=== PATIENT | female | born 1945 | race Caucasian/White ===

== ENCOUNTER 2019-05-31 11:37 | Emergency (ER) | payer BC, MEDICARE ==
[~2019-05-31] VITALS: Ht 167.6 cm; Wt 86.2 kg
--- OUTSIDE RECORDS SUMMARY | ~2019-05-31 | XMS | Encounter Summary ---
Demographics + + + | Address | [address] | | | [place] [address] | + + + | Home Phone | | + + + | Preferred Language | Unknown | + + + | Marital Status | | + + + | Jehovah'S Witness Affiliation | 1041 | + + + | Race | Unknown | + + + | Ethnic Group | Unknown | + + + Author + + + | Author | [facility] | | | and Mattana | + + + | Organization | [facility] | | | and [place] | + + + | Address | Unknown | + + + | Phone | Unavailable | + + + Support + + + + + | Name | Relationship | Address | Phone | + + + + + | Jon Anne | ECON | [address] | | | | | [place] | | | | | [address] | | + + + + + Care Team Providers + +------+ + | Care Cell Tower Climber Name | Role | Phone | + +------+ + | Jose Michael MD | PCP | | + +------+ + Reason for Visit + + + | Reason | Comments | + + + | Follow-up | | + + + Evaluate & Treat (Routine) + +--------+ + + + + | Status | Reason | Specialty | Diagnoses / | Referred By | Referred To | | | | | Procedures | Contact | Contact | + +--------+ + + + + | Authorized | | Radiation | Diagnoses | [facility] | Екатерина, | | | | Oncology | Malignant | Radiation | Roxana Ramos MD | | | | | neoplasm of | Oncology | [address] | | | | | upper-outer | Clinic [address] | | | | | quadrant of | [place] | [place], | | | | | left female | [place], | [place] [address] | | | | | breast (HCC) | [place] | Phone: | | | | | Procedures | [address] | [phone] | | | | | [place] OFFICE | Phone: | Fax: | | | | | OUTPATIENT | [phone] | [phone] | | | | | VISIT 25 | Fax: | | | | | | MINUTES | [phone] | | + +--------+ + + + + Encounter Details +--------+ + + + + | Date | Type | Department | Care Team | Description | +--------+ + + + + | 03/26/ | Hospital | [facility] | Екатерина Roxana | Encounter for | | 2019 | Encounter | [facility] | MD Richard [address] | screening mammogram | | | | ONCOLOGY CLINIC [address] | [place], [place] | for high-risk | | | | [place] | [address] | patient (Primary | | | | [place] [address] | | Dx); Malignant | | | | [phone] | | neoplasm of | | | | | | upper-outer quadrant | | | | | | of left breast in | | | | | | female, estrogen | | | | | | receptor positive | | | | | | (HCC) | +--------+ + + + + Social History + +-------+ +--------+------+ | Tobacco Use | Types | Packs/Day | Years | Date | | | | | Used | | + +-------+ +--------+------+ | Never Assessed | | | | | + +-------+ +--------+------+ + + + | Sex Assigned at | Date Recorded | | | | + + + | Not on file | | + + + + + + + | Job Start Date | Occupation | Industry | + + + + | Not on file | Not on file | Not on file | + + + + + + + + | Travel History | Travel Start | Travel End | + + + + + + | No recent travel history available. | + + documented as of this encounter Last Filed Vital Signs + + + + + | Vital Sign | Reading | Time Taken | Comments | + + + + + | Blood Pressure | 135/70 | 03/26/2019 10:40 AM | | | | | PDT | | + + + + + | Pulse | 81 | 03/26/2019 10:40 AM | | | | | PDT | | + + + + + | Temperature | 35.9 C (96.6 F) | 03/26/2019 10:40 AM | | | | | PDT | | + + + + + | Respiratory Rate | 16 | 03/26/2019 10:40 AM | | | | | PDT | | + + + + + | Oxygen Saturation | 96% | 03/26/2019 10:40 AM | | | | | PDT | | + + + + + | Inhaled Oxygen | - | - | | | Concentration | | | | + + + + + | Weight | 86.4 kg (190 lb 7.6 | 03/26/2019 10:40 AM | | | | oz) | PDT | | + + + + + | Height | - | - | | + + + + + | Body Mass Index | - | - | | + + + + + documented in this encounter Discharge Instructions Patient Instructions Tasha Prabhakar RN - 03/26/2019 11:09 AM PDTFollow-up with Dr. Trinity beasley in 1 year Labs: none Imaging: screening mammogram at [facility] next January Follow-up with Dr. Linder as directed. Alternation of follow-up between providers an ticipated. documented in this encounter Medications at Time of Discharge + + + +---------+ + + | Medication | Sig | Dispensed | Refills | Start | End Date | | | | | | Date | | + + + +---------+ + + | anastrozole | TAKE ONE TABLET BY | 30 | 2 | 06/01/20 | | | (ARIMIDEX) 1 mg | MOUTH EVERY DAY | tablet | | 18 | | | tabletIndications: | | | | | | | Malignant neoplasm | | | | | | | of upper-outer | | | | | | | quadrant of left | | | | | | | female breast, | | | | | | | unspecified estrogen | | | | | | | receptor status | | | | | | | (HCC) | | | | | | + + + +---------+ + + | B Complex-C (SUPER | Take by mouth. | | 0 | | | | B COMPLEX PO) | | | | | | + + + +---------+ + + | Calcium | Take by mouth. | | 0 | | | | Citrate-Vitamin D | | | | | | | (CALCIUM CITRATE + | | | | | | | PO) | | | | | | + + + +---------+ + + | Cholecalciferol | Take by mouth. | | 0 | | | | (VITAMIN D-3 PO) | | | | | | + + + +---------+ + + | Multiple | Take by mouth. | | 0 | | | | Vitamins-Minerals | | | | | | | (MULTIVITAMIN ADULT | | | | | | | PO) | | | | | | + + + +---------+ + + | venlafaxine | Take 75 mg by mouth | | 0 | | | | (EFFEXOR) 75 MG | Daily. | | | | | | tablet | | | | | | + + + +---------+ + + documented as of this encounter Progress Notes Roxana Willams MD - 03/26/2019 10:28 AM PDT Radiation Oncology Follow-up Chief Complaint/ICD10 ICD-10-CM ICD-9-CM 1. Encounter for screening mammogram for high-risk patient Z12.31 V76.11 2. Malignant neoplasm of upper-outer quadrant of left breast in female, estrogen receptor p ositive (HCC) C50.412 174.4 Z17.0 V86.0 History of Present Illness: Malignant neoplasm of upper-outer quadrant of left female breast (HCC) 01/20/2016 Initial Diagnosis Malignant neoplasm of upper-outer quadrant of left female breast (HCC) History of Present Illness: pathologic stage IA, pT1c pN0(sn) cM0. Invasive ductal carcinoma, grade 2, multifocal wit h tumor size is 2 cm and 1.0 cm. Tumor grade 2, non-extensive associated low-grade DCIS, n egative margins, no LVSI, 0/2 sentinel lymph nodes involved, ER 95%, GA 30%, Ki-67 65%, HE R-2/juliann nonamplified by FISH. 01/20/2016 Surgery lumpectomy and sentinel lymph node 03/17/2016 - 04/07/2016 Radiation Therapy Adjuvant radiation whole breast radiation with 4256 cGy in 16 fx, completed 04/07/16 04/07/2016 - Endocrine Therapy Anastrozole Fior Gonsalves completed radiation 3 years ago, she returns for routine follow-up. Screening mammogram at [facility] 01/23/2018, BIRADS-2 Dr. Linder follow up 10/2018 continues on anastrozole. Tolerating this well. She remains in good general health, no new issues or events. Excited about her new grand eric rodriguez and has been traveling to visit him. Continues to work as well. No breast concerns. D enies bothersome discomfort, pain, swelling or lumps. She has not experienced vision change s or headaches. No new focal areas of bone pain, ongoing generalized joint pain. Left neck a nd Shoulder discomfort related to overuse at work. Energy, appetite and weight are stable. General health: good, stable Ongoing treatment: anastrozole. Review of systems: Constitutional: Denies fatigue. Denies high fevers, shaking chills, anorexia, nausea, vomit ing, weight loss, or night sweats. Appetite without changes. Ear, Nose, Mouth, Throat: Denies odynophagia, dysphagia, or tinnitus. Cardiovascular: Denies shortness of breath, dyspnea on exertion, chest pain, palpitations o r orthopnea. Respiratory: Denies cough, hemoptysis, or sputum production. Gastrointestinal: Denies abdominal pain, constipation, diarrhea, melena, or bright red bloo d per rectum. Genitourinary: Denies hematuria or dysuria. Musculoskeletal: Reports general joint pain. Neurologic: Reports floaters in left eye, unchanged. Denies headache, visual changes, or n umbness/tingling of the extremities. Endocrine: Denies peripheral edema or heat/cold intolerance. Hematologic: Denies spontaneous bruising or bleeding. Integumentary: Denies rash, wounds or other skin concerns. Note: My chart: Pain assessment: Location:left shoulder and neck and arm, worse when using mouse Pain Level: PAIN PROG PAIN LEVEL: 2 Pain Quality: Constant Current pain regimen: advil as needed Current Outpatient Medications Medication Sig Dispense Refill anastrozole (ARIMIDEX) 1 mg tablet TAKE ONE TABLET BY MOUTH EVERY DAY 30 tablet 2 B Complex-C (SUPER B COMPLEX PO) Take by mouth. Calcium Citrate-Vitamin D (CALCIUM CITRATE + PO) Take by mouth. Cholecalciferol (VITAMIN D-3 PO) Take by mouth. Coenzyme Q10 (CO Q-10) 100 MG CAPS Co Q-10 ferrous sulfate (PX IRON) 27 MG TABS Take 27 mg by mouth Daily. Multiple Vitamins-Minerals (MULTIVITAMIN ADULT PO) Take by mouth. venlafaxine (EFFEXOR) 75 MG tablet Take 75 mg by mouth Daily. No current facility-administered medications for this visit. Allergies Allergen Reactions Codeine Nausea And Vomiting Sulfa Antibiotics Rash Intolerance No active intolerances/contraindications Vitals: 03/26/19 1040 BP: 135/70 Pulse: 81 Resp: 16 Temp: 35.9 C (96.6 F) Wt Readings from Last 3 Encounters: 03/26/19 86.4 kg (190 lb 7.6 oz) 02/08/18 88 kg (194 lb 0.1 oz) Physical Exam: General: Healthy appearing woman in no acute medical distress. KPS: 90 HEENT: Pupils equal, round and reactive to light. No conjunctival icterus or injection. EOM I. Oral, moist mucus membranes. Lymphatic: No cervical, supraclavicular or axillary lymphadenopathy. Cardiovascular: Regular rate and rhythm, no murmur. Pulmonary: Breath sounds heard throughout, no adventitial sounds or increased work of breat raisa at rest. Extremities: Upper and lower extremities warm and well perfused with no upper or lower extr emity edema. Neurologic: Alert, oriented and appropriated in conversation. CN II-IX grossly intact. Moves all 4 extremities normally with normal gait. Psychiatric: Appropriate. Breast: On upright exam breasts appear symmetric bilaterally with no contour abnormalitie s or malignant appearing skin changes. The left breast demonstrates a well-healed surgical incision. On supine exam palpation of the left breast demonstrates mild fibrosis at the sit e of prior lumpectomy. No discrete mass lesions are identified in either breast. There is no pain with palpation. No nipple changes. Labs: No recent results. Imaging: Review of relevant imaging reports: 01/23/19 screening mammogram at [facility]. Benign, BIRADS-2 Assessment: ICD-10-CM ICD-9-CM 1. Encounter for screening mammogram for high-risk patient Z12.31 V76.11 [facility] Tomosynthesis Screening Bilateral 2. Malignant neoplasm of upper-outer quadrant of left breast in female, estrogen receptor p ositive (HCC) C50.412 174.4 Z17.0 V86.0 Cintia continues to do very well, 3 years out from the completion of radiation. She does not express any lasting bothersome side-effects of radiation. Continues on anastrozole. Exam a nd recent mammogram are also benign, with no evidence of disease recurrence. Plan: Follow-up with Dr. Willams in 1 year Labs: none Imaging: screening mammogram at [facility] next January Follow-up with Dr. Linder as directed. Alternation of follow-up between providers an ticipated. Orders Placed This Encounter Procedures GEN Tomosynthesis Screening Bilateral Thank you for allowing me to participate in the care of Fior Gonsalves. If you should hook ve any questions regarding this evaluation, please do not hesitate to contact me. Roxana Willams M.D. Radiation Oncologist Department of Radiation Oncology [facility] Office: [phone] documented in this encounter Plan of Treatment +--------+ + + + + | Date | Type | Specialty | Care Team | Description | +--------+ + + + + | 04/11/ | Appointment | Radiation Oncology | Roxana Willams | | | 2019 | | | MD [address]etal [address] | | | | | | [place], [place] | | | | | | [address] | | | | | | | | +--------+ + + + + + +---------+--------+ + + | Name | Type | Priori | Associated Diagnoses | Order Schedule | | | | ty | | | + +---------+--------+ + + | GEN Tomosynthesis | Imaging | Routin | Encounter for | Expected: | | Screening Bilateral | | e | screening mammogram | 01/25/2020, Expires: | | | | | for high-risk | 05/26/2020 | | | | | patient | | + +---------+--------+ + + documented as of this encounter Procedures + +--------+ + + + | Procedure Name | Priori | Date/Time | Associated Diagnosis | Comments | | | ty | | | | + +--------+ + + + | IMAGING REPORT - | | 01/23/2019 | | Results for this | | EXTERNAL SCAN | | 12:00 AM | | procedure are in the | | | | PDT | | results section. | + +--------+ + + + documented in this encounter Results IMAGING REPORT - EXTERNAL SCAN (01/23/2019 12:00 AM PDT) + + + | Narrative | Performed At | + + + | Ordered by an | | | unspecified provider. | | + + + documented in this encounter Visit Diagnoses + + | Diagnosis | + + | Encounter for screening mammogram for high-risk patient - Primary | + + | Malignant neoplasm of upper-outer quadrant of left breast in female, estrogen receptor | | positive (HCC) | + + documented in this encounter"
--- OUTSIDE RECORDS SUMMARY | ~2019-05-31 | XMS | Encounter Summary ---
Demographics + + + | Address | [address] | | | [place] [address] | + + + | Home Phone | | + + + | Preferred Language | Unknown | + + + | Marital Status | | + + + | Scientology Affiliation | 1041 | + + + | Race | Unknown | + + + | Ethnic Group | Unknown | + + + Author + + + | Author | [facility] | | | and Mattana | + + + | Organization | [facility] | | | and [place] | + + + | Address | Unknown | + + + | Phone | Unavailable | + + + Support + + + + + | Name | Relationship | Address | Phone | + + + + + | Jon Anne | ECON | [address] | | | | | , [place] | | | | | [address] | | + + + + + Care Team Providers + +------+ + | Care Crown Buffer Name | Role | Phone | + +------+ + | Cordell Blake MD | PCP | | + +------+ + Encounter Details +--------+ + + + + | Date | Type | Department | Care Team | Description | +--------+ + + + + | 04/08/ | Documentati | [facility] | Carina Frias, | | | 2015 | on | [facility] | RN | | | | | ONCOLOGY CLINIC [address] | | | | | | [address] | | | | | | [place] [address] | | | | | | [phone] | | | +--------+ + + + + Social [...] documented as of this encounter Progress Notes Carina Frias RN - 04/08/2016 9:22 AM Nicole completed active treatment yesterda y, 04/07/16, for breast cancer and is eligible for a survivorship care plan per Commission o n Cancer guidelines. Fior did want a care plan however she declined an [facility]. Her care plan with accompanying resources have been mailed and she was notified I would be calling her to follow up and go over the contents of the care plan once she has it in front of her. In addition to the survivorship care plan, the following resources were mailed: information about local and national support groups, nutrition during and after canc er treatment including mediterranean/anti-inflammation diets, fact sheet on coping with the fear of recurrence, information about the rehab program at her local gym ([employer]) and a booklet titled After Treatment Ends: Tools for the Adult Cancer Survivor. As we did not meet in person, Fior did not fill out the NCCN distress thermometer, therefore n o further referrals to be recommended at this time by survivorship coordinator. Will call to follow up in one month's time, my contact information was provided with the care plan oriana pittman Fior want to call me sooner. Electronically signed by Carina Frias RN at 016 9:32 AM PDTdocumented in this encounter Plan of Treatment +--------+ + + + + | Date | Type | Specialty | Care Team | Description | +--------+ + + + + | 04/11/ | Appointment | Radiation Oncology | Roxana Willams | | | 2019 | | | MD Hetal Ramos | | | | | | [place], [place] | | | | | | [address] | | | | | | | | +--------+ + + + + documented as of this encounter Visit Diagnoses Not on filedocumented in this encounter"
--- OUTSIDE RECORDS SUMMARY | ~2019-05-31 | XMS | Encounter Summary ---
Demographics + + + | Address | [address] | | | [place] [address] | + + + | Home Phone | | + + + | Preferred Language | Unknown | + + + | Marital Status | | + + + | Taoist Affiliation | 1041 | + + + | Race | Unknown | + + + | Ethnic Group | Unknown | + + + Author + + + | Author | [facility] | | | and [place]ana | + + + | Organization | [facility] | | | and [place] | + + + | Address | Unknown | + + + | Phone | Unavailable | + + + Support + + + + + | Name | Relationship | Address | Phone | + + + + + | Jon Anne | ECON | [address] | | | | | [place], [place] | | | | | [address] | | + + + + + Care Team Providers + +------+ + | Care Salesforce Administrator Name | Role | Phone | + +------+ + | Cordell Blake MD | PCP | | + +------+ + Reason for Referral Diagnostic/Screening (Routine) +--------+--------+ + + + + | Status | Reason | Specialty | Diagnoses / | Referred By | Referred To | | | | | Procedures | Contact | Contact | +--------+--------+ + + + + | Closed | | Radiology | Diagnoses | Екатерина | [address] | | | | | Breast | Roxana M, | [place] | | | | | cancer of | [address] | [place], | | | | | upper-outer | [address] | [place] [address] | | | | | quadrant of | [place], | Phone: | | | | | left female | [place] [id number] | [phone] | | | | | breast (HCC) | Phone: | Fax: | | | | | Procedures | [phone] | [phone] | | | | | CT | Fax: | | | | | | Treatment | [phone] | | | | | | Plan Complex | | | +--------+--------+ + + + + Encounter Details +--------+ + + + + | Date | Type | Department | Care Team | Description | +--------+ + + + + | 03/08/ | Orders Only | [facility] | Roxana Willams | Breast cancer of | | 2016 | | [facility] | MD Richard [address] | upper-outer quadrant | | | | ONCOLOGY CLINIC [address] | [place], [place] | of left female | | | | [place] | [address] | breast (HCC) | | | | [place] [address] | | (Primary Dx) | | | | [phone] | | | +--------+ + + + [...] + + documented as of this encounter Plan of Treatment +--------+ + + + + | Date | Type | Specialty | Care Team | Description | +--------+ + + + + | 04/11/ | Appointment | Radiation Oncology | Roxana Willams | | | 2019 | | | MD [address] | | | | | | [place], [place] | | | | | | [address] | | | | | | | | +--------+ + + + + documented as of this encounter Results CT Treatment Plan Complex (03/10/2016 10:38 AM PDT) + + | Specimen | + + | | + + + + + | Narrative | Performed At | + + + | No Radiologist interpretation, please see Chart Review. | [facility] | + + + + +---------+ + + | Performing | Address | City/State/Zipcode | Phone Number | | Organization | | | | + +---------+ + + | [facility] | | | | + +---------+ + + documented in this encounter Visit Diagnoses + + | Diagnosis | + + | Breast cancer of upper-outer quadrant of left female breast (HCC) - Primary | + + documented in this encounter"
--- OUTSIDE RECORDS SUMMARY | ~2019-05-31 | XMS | Encounter Summary ---
Demographics + + + | Address | [address] | | | [place] [address] | + + + | Home Phone | | + + + | Preferred Language | Unknown | + + + | Marital Status | | + + + | Sikh Affiliation | 1041 | + + + | Race | Unknown | + + + | Ethnic Group | Unknown | + + + Author + + + | Author | [facility] | | | and [place] | + + + | Organization | [facility] | | | and [place] | + + + | Address | Unknown | + + + | Phone | Unavailable | + + + Support + + + + + | Name | Relationship | Address | Phone | + + + + + | Jon Anne | ECON | [address] | | | | | [place] | | | | | [address] | | + + + + + Care Team Providers + +------+ + | Care Drawing Press Operator Name | Role | Phone | + +------+ + | Cordell Blake MD | PCP | | + +------+ + Encounter Details +--------+ + + + + | Date | Type | Department | Care Team | Description | +--------+ + + + + | 03/18/ | Hospital | [facility] | Roxana Willams | | | 2016 | Encounter | MED CTR RADIATION | M, MD [address] | | | | | ONCOLOGY [address] [place], [place] | | | | | [place], | [address] | | | | | [place] [address] | | | | | | [phone] | | | +--------+ + + + [...] + + documented as of this encounter Medications at Time of Discharge + + + +---------+--------+ + | Medication | Sig | Dispensed | Refills | Start | End Date | | | | | | Date | | + + + +---------+--------+ + | B Complex-C (SUPER | Take by mouth. | | 0 | | | | B COMPLEX PO) | | | | | | + + + +---------+--------+ + | Calcium | Take by mouth. | | 0 | | | | Citrate-Vitamin D | | | | | | | (CALCIUM CITRATE + | | | | | | | PO) | | | | | | + + + +---------+--------+ + | Cholecalciferol | Take by mouth. | | 0 | | | | (VITAMIN D-3 PO) | | | | | | + + + +---------+--------+ + | Multiple | Take by mouth. | | 0 | | | | Vitamins-Minerals | | | | | | | (MULTIVITAMIN ADULT | | | | | | | PO) | | | | | | + + + +---------+--------+ + | venlafaxine | Take 75 mg by mouth | | 0 | | | | (EFFEXOR) 75 MG | Daily. | | | | | | tablet | | | | | | + + + +---------+--------+ + | Coenzyme Q10 | Take by mouth. | | 0 | | | | (COQ10 PO) | | | | | 8 | + + + +---------+--------+ + | ferrous sulfate | Take 27 mg by mouth | | 0 | | | | (PX IRON) 27 MG TABS | Daily. | | | | 9 | + + + +---------+--------+ + documented as of this encounter Progress Notes Roxana James MD - 03/18/2016 11:59 PM [facility] On Treatment Note Name: Fior Gonsalves ID: [id number] Date of Service:04/01/2016 ICD-9 and Description: C50.412 - Malignant neoplasm of upper-outer quadrant of left female breast, Diagnosed 03/02 16 (Active) , Radiation Technical Factors: --Planned Dose: Thorax (Plan ID - Lt Breast) - Rx Dose 4,256cGy (Status - Completed) - --Current Dose: Course: Thorax Treatment Site: Lt Breast Energy: 10X Dose/Fx (cGy): 266 #Fx: Dose Correction (cGy): 0 Total Dose (cGy): 3,192 Start Date: 03/17/2016 End Date: 04/01/2016 Imaging Review: Images were reviewed this week and results of the review have been recorded in ARIA. Cor rections were applied as necessary. Clinical Data Vital Signs: Performed on 04/01/2016 2:59 PM Weight - 87.7 kg - , Temperature - 35.9 C (LOW) - , Pulse - 80 / min - , Respiration - 16 / min - , Systolic - 122 mm(hg) - , Diastolic - 75 mm(hg) - , O2 Sat - 95 % (LOW) - , Pain - 0 - and BP - 122/ 75 - ;. Performance Scale: 70% - Unable to do active work, but able to care for self. (Karnofsky) Pain Assessment: Are you having pain? - No Toxicities: The following toxicities were assessed as a 1: Cough - - Mild, relieved by non-prescription medication Fatigue (lethar/malai/astheni) - - Increased fatigue over baseline, but not altering jonas l activities Pigmentation changes - - Localized pigmentation changes Dry Skin - - Normal RT - Pain due to RT - - None Radiation Dermatitis - - None Rash/ desquamation - - None Physician Assessment: 00:00:00 - On Treatment Progress Note - Roxana James M.D - Interval history: - Stable Moderate fatigue - Resolving nasal congestion and minimally productive cough, no fevers. - Mild erythema on breast, no pain, new pruritus. Objective: Alert and oriented, NAD. Skin mild erythema. Assessment and Plan: Continue treatment as planned. Tolerating well. Conservative skin care with emollient lotion. 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 Cor rections were applied as necessary. Clinical Data Vital Signs: Performed on 03/25/2016 3:04 PM Weight - 89.9 kg - , Temperature - 36.1 C (LOW) - , Pulse - 89 / min - , Respiration - 16 / min - , Systolic - 120 mm(hg) - , Diastolic - 64 mm(hg) (LOW) - , O2 Sat - 95 % (LOW) - , Pain - 0 - and BP - 120/ 64 - ;. Performance Scale: 70% - Unable to do active work, but able to care for self. (Karnofsky) Pain Assessment: Are you having pain? - Yes Toxicities: The following toxicities were assessed as a 1: Cough - - Mild, relieved by non-prescription medication Fatigue (lethar/malai/astheni) - - Increased fatigue over baseline, but not altering jonas l activities Dry Skin - - Normal Pigmentation changes - - None RT - Pain due to RT - - None Radiation Dermatitis - - None Rash/ desquamation - - None Physician Assessment: 15:38:00 - On Treatment Progress Note - Seng Wilson Interval history: - Moderate fatigue - Continued nasal congestion and minimally productive cough, no fevers. - Mild erythema on breast, no pain. Objective: Alert and oriented, NAD. Skin Faint erythema. Assessment and Plan: Continue treatment as planned. Tolerating well. Conservative skin care with emollient lotion. 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 Cor rections were applied as necessary. Clinical Data Vital Signs: Performed on 03/18/2016 2:53 PM Weight - 88.7 kg - , Temperature - 35.9 C (LOW) - , Pulse - 75 / min - , Respiration - 16 / min - , Systolic - 132 mm(hg) - , Diastolic - 70 mm(hg) - , O2 Sat - 94 % (LOW) - , Pain - 0 - and BP - 132/ 70 - ;. Performance Scale: 80% - Normal activity, but requires effort. (Karnofsky) Pain Assessment: Are you having pain? - No Toxicities: Cough - - Absent Dry Skin - - Normal Fatigue (lethar/malai/astheni) - - None Pigmentation changes - - None RT - Pain due to RT - - None Radiation Dermatitis - - None Rash/ desquamation - - None Physician Assessment: 17:01:00 - On Treatment Progress Note - Roxana James M.D - Interval history: Fior started radiation treatment this week. She has been tolerating treatment very we ll. No apparent side effects. We discussed skin care and potential side effects throughou t treatment. Objective: Alert and oriented, NAD. Skin no erythema. Assessment and Plan: Continue treatment as planned. Tolerating well. Conservative skin care with emollient lotion. Approved by: Roxana James M.D 03/18/2016 5:11:28 PM Page 1 of 2 CSN: [id number] signed by Roxana James MD at 03/18/2016 5:11 PM PDTd ocumented in this encounter Plan of Treatment +--------+ + + + + | Date | Type | Specialty | Care Team | Description | +--------+ + + + + | 04/11/ | Appointment | Radiation Oncology | Roxana Willams | | | 2019 | | | MD [address] | | | | | | [facility] [place] | | | | | | [address] | | | | | | | | +--------+ + + + + documented as of this encounter Visit Diagnoses Not on filedocumented in this encounter"
--- OUTSIDE RECORDS SUMMARY | ~2019-05-31 | XMS | Encounter Summary ---
Demographics + + + | Address | [address] | | | [place] [address] | + + + | Home Phone | | + + + | Preferred Language | Unknown | + + + | Marital Status | | + + + | Faith Affiliation | 1041 | + + + | Race | Unknown | + + + | Ethnic Group | Unknown | + + + Author + + + | Author | [facility] | | | and [place] | + + + | Organization | [facility] | | | and [place] | + + + | Address | Unknown | + + + | Phone | Unavailable | + + + Support + + + + + | Name | Relationship | Address | Phone | + + + + + | Jon Anne | ECON | [address] | | | | | [place] | | | | | [address] | | + + + + + Care Team Providers + +------+ + | Care Oyster Sorter Name | Role | Phone | + +------+ + | Cordell Blake MD | PCP | | + +------+ + Reason for Visit +--------+ + | Reason | Comments | +--------+ + | Other | Survivorship | +--------+ + Encounter Details +--------+ + + + + | Date | Type | Department | Care Team | Description | +--------+ + + + + | 05/10/ | Telephone | [facility] | Carina Frias, | Other (Survivorship) | | 2015 | | MED CTR MEDICAL | RN | | | | | ONCOLOGY CLINIC [address] | | | | | | [address] | | | | | | [place] [address] | | | | | | [phone] | | | +--------+ + + + [...] | | | MD [address] | | | | | | [place] | | | | | | [address] | | | | | | | | +--------+ + + + + documented as of this encounter Visit Diagnoses Not on filedocumented in this encounter"
--- OUTSIDE RECORDS SUMMARY | ~2019-05-31 | XMS | Encounter Summary ---
Demographics + + + | Address | [address] | | | [place] [address] | + + + | Home Phone | | + + + | Preferred Language | Unknown | + + + | Marital Status | | + + + | Caodaism Affiliation | 1041 | + + + | Race | Unknown | + + + | Ethnic Group | Unknown | + + + Author + + + | Author | [facility] | | | and [place] | + + + | Organization | [facility] | | | and [place] [...] , [place] | | | | | [address] | | + + + + + Care Team Providers + +------+ + | Care Double End Tenoner Setter Name | Role | Phone | + +------+ + | Cordell Blake MD | PCP | | + +------+ + Encounter Details +--------+ + + + + | Date | Type | Department | Care Team | Description | +--------+ + + + + | 07/20/ | Hospital | [facility] | Roxana Willams | Breast cancer | | 2017 | Encounter | MED CTR RADIATION | MD Richard [address] | screening, high risk | | | | ONCOLOGY [address] | [facility] [place] | patient (Primary | | | | [place], | [id number] | Dx); Malignant | | | | [place] [id number] | | neoplasm of | | | | [phone] | | upper-outer quadrant | | | | | | of left female | | | | | | breast (HCC) | +--------+ + + + + [...] | + + + +---------+--------+ + | anastrozole | Take 1 mg by mouth | | 0 | | | | (ARIMIDEX) 1 mg | Daily. | | | | 7 | | tablet | | | | [...] encounter Progress Notes Roxana James MD - 07/20/2016 10:44 AM [facility] Radiation Oncology Follow-up Note PATIENT: Fior Gonsalves MR#: [id number] :1945 DOS:07/20/2016 ICD/Diagnosis: C50.412 - Malignant neoplasm of upper-outer quadrant of left female breast, Diagnosed 03/02 16 (Active) Chief Complaint/History of Present Illness: Fior Gonsalves is a 71 year-old woman with left breast cancer, pathologic stage IA, pT 1c pN0(sn) cM0. Invasive ductal carcinoma, grade 2, multifocal with tumor size is 2 cm and 1.0 cm. Tumor grade 2, non-extensive associated low-grade DCIS, negative margins, no LVSI, 0/2 sentinel lymph nodes involved, ER 95%, CT 30%, Ki-67 65%, HER-2/juliann nonamplified by [facility]. She has undergone lumpectomy and sentinel lymph node procedure and completed adjuvant r adiation whole breast radiation with 4256 cGy in 16 fx, completed 04/07/16. Breast symptoms have resolved nicely with only minimal axillary tenderness at the scar tis abraham. She does not demonstrate any axillary tightness, no breast or arm swelling. Cintia has been ill over the last few months with multiple unrelated issues. She describes multiple m onths of loose stools after completing radiation this has resolved by fiber supplement and eating yogurt. She also reports to upper respiratory tract infections, she is currently de aling with one. Nasal congestion, cough, fatigue. She has not had any breast cancer relat ed concerns at this time. She is taking adjuvant anastrozole under the care of Dr. Amol toussaint and tolerating this medication well. Review of Systems: ROS ConstitutionalAbnormal - Complains of night sweats. Denies lack of appetite, fatigue, fever, rigors / chills and change in weight.ROS EyesNormal - Denies blurred vision, double vision and visual difficulties.ROS ENMT Abnormal - Complains of sinusitis with allergic rhi nitis. Denies dysphagia and esophagitis.ROS NeckNormal - Denies neck masses, muscle weaknes s, neck pain, decreased range of motion and swelling of the neck.ROS IntegumentaryNormal - Denies blistering, bruising, dry skin, pruritus and rash.ROS BreastsAbnormal - Complains o f pain Tenderness under left arm at times.ROS Cardiovascular Normal - Denies arrhythmias, chest pain, dyspnea, edema and palpitations.ROS RespiratoryAbnormal - Complains of cough. D enies dyspnea, hemoptysis and wheezing.ROS GastrointestinalAbnormal - Complains of heartbur n / dyspepsia. Denies abdominal pain, constipation, diarrhea, nausea and vomiting.ROS Luba tourinary (F)Normal - Denies dysuria, frequency, nocturia, urgency and urine color change. Stress incontinenceROS MusculoskeletalAbnormal - Complains of arthritis. Denies joint pain, muscle weakness and decreased range of motion.ROS NeurologicAbnormal - Complains of dizzin ess. Denies headaches, motor weakness and sensory problems.ROS PsychiatricNormal - Denies m ood swings, depression and euphoria.ROS EndocrineNormal - Denies diabetes, hot flashes and thyroid disease.ROS Hematologic/LymphaticNormal - Denies easy bruising and tender or enlar ged lymph nodes. Medications: ANASTROZOLE 1 mg TABLET ORAL q.d. B Complex-C (SUPER B COMPLEX) TABLET q.d. CALCIUM ACETATE CAPSULE ORAL CO Q-10 CAPSULE D3 (2000 mg) TABLET ferrous sulfate (PX IRON) 27 MG iron TABLET venlafaxine er (75 mg) CAPSULE Allergies: codeine sulfa Vital Signs: Performed on 07/20/2016, 09:26Weight 85.1 kg Temperature 36.0 C (LOW) Pulse 88 / min Respiration 16 / min BP130/76 mm(hg) O2 Sat 93 % (LOW) Pain 0 Physical Exam: General: Healthy appearing woman in no acute medical distress. KPS: 90 HEENT: Pupils equal , round and reactive to light. No conjunctival icterus or injection. EOMI. Oral, moist mucu s membranes. Lymphatic: No cervical, supraclavicular or axillary lymphadenopathy. Cardiovascular: Regul ar rate and rhythm, no murmur. Pulmonary: Breath sounds heard throughout, no adventitial sounds or increased work of bobbi thing at rest. Extremities: Upper and lower extremities warm and well perfused with no upper or lower ext remity edema. Neurologic: Alert, oriented and appropriated in conversation. CN II-IX grossly intact. Moves all 4 extremities normally with normal gait. Psychiatric: Appropriate. Breast: On upright exam breasts appear symmetric bilaterally with no contour abnormaliti es or malignant appearing skin changes. The left breast demonstrates a well-healed surgica l incisions, periareolar and anterior axilla. On supine exam palpation of the left breast d emonstrates mild fibrosis at the site of prior lumpectomy and sentinel lymph node procedure . No discrete mass lesions are identified in either breast. There is no pain with palpati on. No nipple changes. Questionnaires: Are you having pain?No Imaging, pathology and pertinent labs reviewed personally and described above in history o f present illness. Impression/Plan: 71 year-old woman with left breast cancer, pathologic stage IA, pT1c pN0(sn) cM0. Invasive ductal carcinoma, grade 2, multifocal with tumor size is 2 cm and 1.0 cm. Tumor grade 2, n on-extensive associated low-grade DCIS, negative margins, no LVSI, 0/2 sentinel lymph nodes involved, ER 95%, CT 30%, Ki-67 65%, HER-2/juliann nonamplified by FISH. She has undergone lum pectomy and sentinel lymph node procedure and completed adjuvant radiation whole breast ra diation with 4256 cGy in 16 fx, completed 04/07/16. Adjuvant endocrine therapy with anast rozole. Pat has recovered well from radiation treatment. She has minimal sequelae of treatment wi th mild scar fibrosis and tenderness. She is encouraged to perform massage to these areas and continue range of motion exercises. I ordered a six-month follow-up mammogram of the le , due now at [facility]. Follow-up with Dr. Linder as directed in the next few tue. Her annual bilateral screening mammogram will be due in January. She should return f or clinical exam at that time. Thank you for allowing me to participate in the care of Fior Gonsalves. If you should have any questions regarding this evaluation, please do not hesitate to contact me. Roxana Herrera M.D. Radiation Oncologist Department of Radiation Oncology [facility] Electronically signed by Roxana James M.D CC: Cordell Blake M.D. Ap Pascual M.D. Fior Lara M.D. Kirk Linder M.D. This note was transcribed using [employer] speech recognition software. As a result, there ma y be unintended for medical and/or spelling errors. Every attempt is made to correct dicta tion. If there are any questions or errors please contact our office. CSN: [id number] signed by Roxana James MD at 07/20/2016 10:46 AM PSTd ocumented in this encounter Plan of Treatment +--------+ + + + + | Date | Type | Specialty | Care Team | Description | +--------+ + + + + | 04/11/ | Appointment | Radiation Oncology | Roxana Willams | | | 2019 | | | MD [address] | | | | | | [place], [place] | | | | | | [address] | | | | | | | | +--------+ + + + + + +---------+--------+ + + | Name | Type | Priori | Associated Diagnoses | Order Schedule | | | | ty | | | + +---------+--------+ + + | GEN Digital | Imaging | Routin | Malignant neoplasm | Expected: | | Diagnostic Left | | e | of upper-outer | 07/20/2016, Expires: | | | | | quadrant of left | 09/17/2017 | | | | | female breast (HCC) | | + +---------+--------+ + + | GEN Digital | Imaging | Routin | Breast cancer | Expected: | | Screening Bilateral | | e | screening, high risk | 01/12/2017, Expires: | | | | | patient | 09/19/2017 | + +---------+--------+ + + documented as of this encounter Procedures + +--------+ + + + | Procedure Name | Priori | Date/Time | Associated Diagnosis | Comments | | | ty | | | | + +--------+ + + + | IMAGING REPORT - | | 01/18/2017 | | Results for this | | EXTERNAL SCAN | | 12:00 AM | | procedure are in the | | | | PDT | | results section. | + +--------+ + + + documented in this encounter Results IMAGING REPORT - EXTERNAL SCAN (01/18/2017 12:00 AM PDT) + + + | Narrative | Performed At | + + + | Ordered by an | | | unspecified provider. | | + + + documented in this encounter Visit Diagnoses + + | Diagnosis | + + | Breast cancer screening, high risk patient - Primary Screening mammogram for | | high-risk patient | + + | Malignant neoplasm of upper-outer quadrant of left female breast (HCC) Malignant | | neoplasm of upper-outer quadrant of female breast | + + documented in this encounter"
--- OUTSIDE RECORDS SUMMARY | ~2019-05-31 | XMS | Encounter Summary ---
Demographics + + + | Address | [address] | | | [place] [address] | + + + | Home Phone | | + + + | Preferred Language | Unknown | + + + | Marital Status | | + + + | Moravian Affiliation | 1041 | + + + | Race | Unknown | + + + | Ethnic Group | Unknown | + + + Author + + + | Author | [facility] | | | and [place] | + + + | Organization | [facility] | | | and Mattana [...] | [place] | | | | | [address] | | + + + + + Care Team Providers + +------+ + | Care Juice Standardizer Name | Role | Phone | + [...] | | | | | [address] | | | | | | [place] [address] | | | | | | [phone] | | | +--------+ + + + [...]
--- OUTSIDE RECORDS SUMMARY | ~2019-05-31 | XMS | Encounter Summary ---
Demographics + + + | Address | [address] | | | [place] [address] | + + + | Home Phone | | + + + | Preferred Language | Unknown | + + + | Marital Status | | + + + | Holiness Affiliation | 1041 | + + + | Race | Unknown | + + + | Ethnic Group | Unknown | + + + Author + + + | Author | [facility] | | | and [place] | + + + | Organization | [facility] | | | and [place] | + + + | Address | Unknown | + + + | Phone | Unavailable | + + + Support + + + + + | Name | Relationship | Address | Phone | + + + + + | Jon Anne | ECON | [address] | | | | | [place] | | | | | [address] | | + + + + + Care Team Providers + +------+ + | Care Utilization Engineer Name | Role | Phone | + +------+ + | Cordell Blake MD | PCP | | + +------+ + Reason for Visit + + + | Reason | Comments | + + + | Medication Refill | | + + + Encounter Details +--------+--------+ + + + | Date | Type | Department | Care Team | Description | +--------+--------+ + + + | 01/08/ | Refill | [facility] | Niyah, | Medication Refill | | 2017 | | MED [facility] | Kirk Rodarte MD [address] | | | | | ONCOLOGY CLINIC [address] [place] | | | | | [address] [place] | [place] [address] | | | | | [place] [address] | [phone] | | | | | [phone] | | | +--------+--------+ + + + Social History + +-------+ [...] JIE | | | | | | [place], [place] | | | | | | [address] | | | | | | | | +--------+ + + + + documented as of this encounter Visit Diagnoses + + | Diagnosis | + + | Malignant neoplasm of left female breast, unspecified estrogen receptor status, | | unspecified site of breast (HCC) - Primary | + + documented in this encounter"
--- OUTSIDE RECORDS SUMMARY | ~2019-05-31 | XMS | Encounter Summary ---
Demographics + + + | Address | [address] | | | [place] [address] | + + + | Home Phone | | + + + | Preferred Language | Unknown | + + + | Marital Status | | + + + | Amish Affiliation | 1041 | + + + | Race | Unknown | + + + | Ethnic Group | Unknown | + + + Author + + + | Author | [facility] | | | and [place] | + + + | Organization | [facility] | | | and [place]ana [...] , [place] | | | | | [address] | | + + + + + Care Team Providers + +------+ + | Care Distribution Tech Name | Role | Phone | + +------+ + | Cordell Blake MD | PCP | | + +------+ + Encounter Details +--------+ + + + + | Date | Type | Department | Care Team | Description | +--------+ + + + + | 03/18/ | Documentati | [facility] | Radha Echeverria | | | 2016 | on | MED CNT ONCOLOGY | A, OT | | | | | THERAPY [address] | | | | | | [place], | | | | | | [place] [address] | | | | | | [phone] | | | +--------+ + + + [...] documented as of this encounter Progress Notes Radha Echeverria, OT - 03/18/2016 3[facility] [address] [facility] [address] Oncology Rehab Screening Date: 03/18/2016 Patient Information Patient Name: Fior Gonsalves Date of : 1945 Age: 71 y.o. Patient was seen for oncology rehab screening due to new patient consult. Patient currently being treated for L breast ca, s/p lumpectomy and SNB (0/2+) and treatment regimen includes radiation. Introduced self to patient and advised her of role and availability of Oncology Rehab Navigator. Patient reports no difficulty in recovery or healing from surgery. She d emonstrates full ROM BUEs and has no reported edema or UE pain. Scars appear mobile w/out e xcessive fibrotic tissue. Instructed patient in scar massage and lymph flow massage for use during and after radiation phase of tx. Also instructed in ROM exs to maintain tissue plia bility and pain free ROM during and after radiation. Provided patient with lymphedema risk reduction techniques and education as well as information re: activity and exercise. Sahil t receptive and has good support in her family and friends. No further concerns or question s at this time. Will f/u with patient in cancer ctr >= 1 more visit as she progresses in he r tx. Will have follow up visit in cancer center. Electronically signed by: Radha Echeverria OT, 03/18/2016 15:50 Patient Name: Fior Gonsalves/: 1945/ documented in this encounter Plan of Treatment +--------+ + + + + | Date | Type | Specialty | Care Team | Description | +--------+ + + + + | 04/11/ | Appointment | Radiation Oncology | Roxana Willams | | | 2019 | | | MD Hetal Ramos | | | | | | [facility] [place] | | | | | | [id number] | | | | | | | | +--------+ + + + + documented as of this encounter Visit Diagnoses Not on filedocumented in this encounter"
--- OUTSIDE RECORDS SUMMARY | ~2019-05-31 | XMS | Encounter Summary ---
Demographics + + + | Address | [address] | | | [place] [address] | + + + | Home Phone | | + + + | Preferred Language | Unknown | + + + | Marital Status | | + + + | Samaritan Affiliation | 1041 | + + + | Race | Unknown | + + + | Ethnic Group | Unknown | + + + Author + + + | Author | [facility] | | | and [place] | + + + | Organization | [facility] | | | and [place] | [...] , [place] | | | | | [address] | | + + + + + Care Team Providers + +------+ + | Care Pre K Lead Teacher Name | Role | Phone | + +------+ + | Cordell Blake MD | PCP | | + +------+ + Encounter Details +--------+ + + + + | Date | Type | Department | Care Team | Description | +--------+ + + + + | 07/20/ | Hospital | [facility] | Roxana Willams | Breast cancer | | 2017 | Encounter | MED CTR RADIATION | MD Richard [address] | screening, high risk | | | | ONCOLOGY [address] | [facility] [place] | patient (Primary | | | | [place], | [address] | Dx); Malignant | | | | [place] [address] | | neoplasm of | | | | [phone] | | upper-outer quadrant | | | [...] Roxana James MD - 07/20/2016 10:44 AM [facility] Radiation Oncology Follow-up Note PATIENT: Fior Gonsalves MR#: [id number] :1945 DOS:07/20/2016 ICD/Diagnosis: C50.412 - Malignant neoplasm [...] 0/2 sentinel lymph nodes involved, ER 95%, NE 30%, Ki-67 65%, HER-2/juliann nonamplified by [facility]. She has undergone lumpectomy and [...] 0/2 sentinel lymph nodes involved, ER 95%, NE 30%, Ki-67 65%, HER-2/juliann nonamplified by FISH. [...] of the le , due now at [place]. Follow-up with Dr. Linder as directed in [...] M.D. Radiation Oncologist Department of Radiation Oncology [facility] Electronically signed by Roxana James M.D CC: Cordell Blake M.D. Ap Pascual M.D. Fior Lara M.D. Kirk Linder M.D. This note was transcribed using [employer] speech recognition software. As a result, there ma y be unintended for medical and/or spelling errors. Every attempt is made to correct dicta tion. If there are any questions or errors please contact our office. CSN: [id number] signed by Roxana James MD at 07/20/2016 [...] Ramos | | | | | | [place], [place] | | | | | | [...]
--- OUTSIDE RECORDS SUMMARY | ~2019-05-31 | XMS | Encounter Summary ---
Demographics + + + | Address | [address] | | | [place] [address] | + + + | Home Phone | | + + + | Preferred Language | Unknown | + + + | Marital Status | | + + + | Methodist Affiliation | 1041 | + + + | Race | Unknown | + + + | Ethnic Group | Unknown | + + + Author + + + | Author | [facility] | | | and [place] | + + + | Organization | [facility] | | | and [place] [...] | [place] | | | | | [address] | | + + + + + Care Team Providers + +------+ + | Care Forepart Rounder Name | Role | Phone | + +------+ + | Cordell Blake MD | PCP | | + +------+ + Reason for Visit +---------+ + | Reason | Comments | +---------+ + | Results | | +---------+ + Encounter Details +--------+ + + + + | Date | Type | Department | Care Team | Description | +--------+ + + + + | 01/24/ | Telephone | [facility] | Tasha Prabhakar, | Results | | 2017 | | MED CTR RADIATION | RN | | | | | ONCOLOGY [address] | | | | | | [place], | | | | | | [place] [address] | | | | | | [phone] | | | +--------+ + + + [...] Oncology | Roxana Willams | | | 2020 | | | MD Richard [address] | | | | | | [place] | | | | | | [id number] | | | | | | | | +--------+ + + + + documented as of this encounter Visit Diagnoses Not on filedocumented in this encounter"
--- OUTSIDE RECORDS SUMMARY | ~2019-05-31 | XMS | Encounter Summary ---
Demographics + + + | Address | [address] | | | [place] [address] | + + + | Home Phone | | + + + | Preferred Language | Unknown | + + + | Marital Status | | + + + | Yarsani Affiliation | 1041 | + + + | Race | Unknown | + + + | Ethnic Group | Unknown | + + + Author + + + | Author | [facility] | | | and [place] | + + + | Organization | [facility] | | | and [place] | + + + | Address | Unknown | + + + | Phone | Unavailable | + + + Support + + + + + | Name | Relationship | Address | Phone | + + + + + | Jon Anne | ECON | [address] | | | | | [place], [place] | | | | | [address] | | + + + + + Care Team Providers + +------+ + | Care Electrical Repairer Name | Role | Phone | + +------+ + | Cordell Blake MD | PCP | | + +------+ + Reason for Visit Evaluate & Treat (Routine) +--------+--------+ + + + + | Status | Reason | Specialty | Diagnoses / | Referred By | Referred To | | | | | Procedures | Contact | Contact | +--------+--------+ + + + + | Closed | | Radiation | Diagnoses | Ankur, | Екатерина | | | | Oncology | Malignant | Ap Thompson | Roxana Ramos MD | | | | | neoplasm of | [address] | [address] | | | | | unspecified | [address] | | | | | site of | [address] | [place], | | | | | unspecified | [place], | [place] [address] | | | | | female | [place] [address] | Phone: | | | | | breast (HCC) | Phone: | [phone] | | | | | | [phone] | Fax: | | | | | Consult/Stg | Fax: | [phone] | | | | | I Breast | [phone] | | | | | | Ca/Ankur | | | | | | | (requested ) | | | | | | | breast conf | | | | | | | (seeing Dr. | | | | | | | Q03-05-16 | | | | | | | @[facility] | | | | | | | Procedures | | | | | | | [place] OFFICE | | | | | | | OUTPATIENT | | | | | | | VISIT 25 | | | | | | | MINUTES NEW | | | | | | | PATIENT | | | +--------+--------+ + + + + Encounter Details +--------+ + + + + | Date | Type | Department | Care Team | Description | +--------+ + + + + | 03/02/ | Hospital | [facility] | LollysammyRoxana martines | | | 2016 | Encounter | MED CTR RADIATION | MD Richard [address] | | | | | ONCOLOGY [address] | [address] [place], [place] | | | | | [place], | [address] | | | | | [place] [address] | | | | | | [phone] | | | +--------+ + + + [...] +---------+--------+ + documented as of this encounter Plan of Treatment +--------+ + + + + | Date | Type | Specialty | Care Team | Description | +--------+ + + + + | 04/11/ | Appointment | Radiation Oncology | Roxana Willams | | | 2019 | | | MD Richard [address] | | | | | | [place] | | | | | | [address] | | | | | | | | +--------+ + + + + documented as of this encounter Visit Diagnoses Not on filedocumented in this encounter"
--- OUTSIDE RECORDS SUMMARY | ~2019-05-31 | XMS | Encounter Summary ---
Demographics + + + | Address | [address] | | | [place] [address] | + + + | Home Phone | | + + + | Preferred Language | Unknown | + + + | Marital Status | | + + + | Hinduism Affiliation | 1041 | + + + | Race | Unknown | + + + | Ethnic Group | Unknown | + + + Author + + + | Author | [facility] | | | and [place] | + + + | Organization | [facility] | | | and [place] [...] | [place] | | | | | [address] | | + + + + + Care Team Providers + +------+ + | Care Brand Advisor Name | Role | Phone | + [...] [address] | | | | | | [place], | | | | | | [place] [address] | | | | | | [phone] | | | +--------+ + + + [...] [place] | | | | | | [id number] | | | | | | | | +--------+ + + + + documented as of this encounter Visit Diagnoses Not on filedocumented in this encounter"
--- OUTSIDE RECORDS SUMMARY | ~2019-05-31 | XMS | Clinical Summary ---
Demographics + + + | Address | [address] | | | [place] [address] | + + + | Home Phone | | + + + | Preferred Language | Unknown | + + + | Marital Status | | + + + | Roman Catholic Affiliation | 1041 | + + + | Race | Unknown | + + + | Ethnic Group | Unknown | + + + Author + + + | Author | [facility] | | | and [place] | + + + | Organization | [facility] | | | and [place] | + + + | Address | Unknown | + + + | Phone | Unavailable | + + + Support + + + + + | Name | Relationship | Address | Phone | + + + + + | Jon Anne | ECON | [address] | | | | | [place], [place] | | | | | [address] | | + + + + + Care Team Providers + +------+ + | Care Dietary Server Name | Role | Phone | + +------+ + | Jose Michael MD | PCP | | + +------+ + Allergies + + + + + + | Active Allergy | Reactions | Severity | Noted | Comments | | | | | Date | | + + + + + + | Codeine | Nausea And Vomiting | | 03/02/20 | | | | | | 16 | | + + + + + + | Sulfa Antibiotics | Rash | Low | 03/02/20 | | | | | | 16 | | + + + + + + Medications + + + +---------+------+------+-------+ | Medication | Sig | Dispensed | Refills | Star | End | Statu | | | | | | t | Date | s | | | | | | Date | | | + + + +---------+------+------+-------+ | venlafaxine | Take 75 mg by mouth | | 0 | | | Activ | | (EFFEXOR) 75 MG | Daily. | | | | | e | | tablet | | | | | | | + + + +---------+------+------+-------+ | Calcium | Take by mouth. | | 0 | | | Activ | | Citrate-Vitamin D | | | | | | e | | (CALCIUM CITRATE + | | | | | | | | PO) | | | | | | | + + + +---------+------+------+-------+ | Multiple | Take by mouth. | | 0 | | | Activ | | Vitamins-Minerals | | | | | | e | | (MULTIVITAMIN ADULT | | | | | | | | PO) | | | | | | | + + + +---------+------+------+-------+ | B Complex-C (SUPER | Take by mouth. | | 0 | | | Activ | | B COMPLEX PO) | | | | | | e | + + + +---------+------+------+-------+ | Cholecalciferol | Take by mouth. | | 0 | | | Activ | | (VITAMIN D-3 PO) | | | | | | e | + + + +---------+------+------+-------+ | anastrozole | TAKE ONE TABLET BY | 30 | 2 | 12/2 | | Activ | | (ARIMIDEX) 1 mg | MOUTH EVERY DAY | tablet | | 0/20 | | e | | tabletIndications: | | | | 18 | | | | Malignant neoplasm | [...] (HCC) | | | | | | | + + + +---------+------+------+-------+ Active Problems + + + | Problem | Noted Date | + + + | Malignant neoplasm of upper-outer quadrant of left female breast | 03/29/2016 | + + + Encounters +--------+ + + + + | Date | Type | Specialty | Care Team | Description | +--------+ + + + + | 03/26/ | Hospital | Radiation Oncology | Roxana Willams | Encounter for | | 2019 | Encounter | | MD Richard | screening mammogram | | | | | | for high-risk | | | | | | patient (Primary | | | | | | Dx); Malignant | | | | | | neoplasm of | | | | | | upper-outer quadrant | | | | | | of left breast in | | | | | | female, estrogen | | | | | | receptor positive | | | | | | (HCC) | +--------+ + + + + from Last 3 Months Social History + +-------+ +--------+------+ | Tobacco [...] recent travel history available. | + + Last Filed Vital Signs + + + [...] | | + + + + + Plan of Treatment +--------+ + + + + | Date | Type | Specialty | Care Team | Description | +--------+ + + + + | 04/11/ | Appointment | Radiation Oncology | Roxana Willams | | | 2019 | | | MD Hetla [address] | | | | | | [place] | | | | | | [address] | | | | | | | | +--------+ + + + + + + + + + | Health Maintenance | Due Date | Last Done | Comments | + + + + + | Hepatitis C | | | | | Screening | 6 | | | + + + + + | Vaccine: | | | | | Dtap/Tdap/Td (1 - | 7 | | | | Tdap) | | | | + + + + + | Colorectal Cancer | | | | | Screening | 6 | | | | (Colonoscopy) | | | | + + + + + | Vaccine: Zoster (1 | | | | | of 2) | 6 | | | + + + + + | Vaccine: | | | | | Pneumococcal 65+ (1 | 1 | | | | of 2 - PCV13) | | | | + + + + + | Adult Annual | | | | | Wellness Visit | 6 | | | + + + + + | Breast Cancer | | 01/13/2016 | | | Screening | 8 | | | + + + + + | Vaccine: Influenza | | 04/06/2018, 03/30/2017, | | | (#1) | 9 | 06/16/2016, Additional history | | | | | exists | | + + + + + Results Not on filefrom Last 3 Months Insurance + +--------+ +--------+ +---------+--------+ | Payer | Benefi | Subscriber | Effect | Phone | Address | Type | | | t Plan | ID | vic | | | | | | / | | Dates | | | | | | Group | | | | | | + +--------+ +--------+ +---------+--------+ | BCBS | BCBS | [id number] | 06/13/19 | | | PPO | | | FEDERA | | 16-Pre | | | | | | L FEP | | sent | | | | + +--------+ +--------+ +---------+--------+ | MEDICARE | MEDICA | [id number] | 12/12/19 | [phone] | | Medica | | | RE | | 11-Pre | 5 | | re | | | PART A | | sent | | | | | | AND B | | | | | | + +--------+ +--------+ +---------+--------+ + +--------+ +--------+ + + | Guarantor Name | Accoun | Relation to | Date | Phone | Billing Address | | | t Type | Patient | of | | | | | | | | | | + +--------+ +--------+ + + | Fior Gonsalves | Person | Self [birth year] | [address] | | | al/Fam | | 1945 | [phone] | [place] [address] | | | mikael | | | 5 (Home) | | + +--------+ +--------+ + + Advance Directives + + + + + | Type | Date Recorded | Patient | Explanation | | | | Vice President Of Software Development | | + + + + + | Power of | | | | | Television Maintenance Man | | | | + + + + + | Advance | | | | | Directive | | | | + + + + +"
--- OUTSIDE RECORDS SUMMARY | ~2019-05-31 | XMS | Encounter Summary ---
Demographics + + + | Address | [address] | | | [place] [address] | + + + | Home Phone [...] + + | Author | [facility] | | | and [place]ana | + + + | Organization | [facility] | | | and Mattana [...] [place] | | | | | [address] | | + + + + + Care Team Providers + +------+ + | Care Metal Baler Name | Role | Phone | + [...] Refill | | 2017 | | [facility] | Kirk Rodarte MD [address] | | | | | ONCOLOGY CLINIC [address] [place] | | | | | [place] | [place] [address] | | | | | [place] [address] | [phone] | | | | | [phone] | | | +--------+--------+ + + + [...] | | | | | | [place], [place] | | | | | | [address] | | | | | | | | +--------+ + + + + documented as of this encounter Visit Diagnoses + + | Diagnosis | + + | Malignant neoplasm of left female breast, unspecified estrogen receptor status, | | unspecified site of breast (HCC) - Primary | + + documented in this encounter"
--- OUTSIDE RECORDS SUMMARY | ~2019-05-31 | XMS | Encounter Summary ---
Demographics + + + | Address | [address] | | | [place] [address] | + + + | Home Phone | | + + + | Preferred Language | Unknown | + + + | Marital Status | | + + + | Yarsani Affiliation | 1041 | + + + | Race | Unknown | + + + | Ethnic Group | Unknown | + + + Author + + + | Author | [facility] | | | and Mattana | + + + | Organization | [facility] | | | and [...] | [place] | | | | | [address] | | + + + + + Care Team Providers + +------+ + | Care Skidder Lever Operator Name | Role | Phone | + +------+ + | Cordell Blake MD | PCP | | + +------+ + Reason for Visit + + + | Reason | Comments | + + + | Psychosocial Support | | + + + Encounter Details +--------+ + + + + | Date | Type | Department | Care Team | Description | +--------+ + + + + | 03/10/ | Documentati | [facility] | Nicolle Pollard, | Psychosocial Support | | 2015 | on | MED CTR MEDICAL | [employer] | | | | | ONCOLOGY CLINIC [address] | | | | | | [address] | | | | | | [place] [address] | | | | | | [phone] | | | +--------+ + + + [...] documented as of this encounter Progress Notes Nicolle Pollard MSW - 03/10/2016 3:50 PM PDTOncology Tube Pusher met with Fior ruiz to introduce self and administer the NCCN Distress Screening Tool. Fior is being treated for breast cancer. She lives in [place] with her . They have two grown lewis ghters. Matt rated her distress as 3 on a 10 point scale. She noted treatment decisio ns as a issue because she struggled with whether or not to have chemotherapy and has decided to do radiation only. She noted distress with her children and comments one daughter in pa rticular is very concerned about her mother's diagnosis - this nursing home social worker recommended she bring her daughter to an appointment with her oncologist and she states she will. She note d family health concerns because her vsiyeo-el-kyi just had a hip replacement and her father -in-law had a stroke. Fior and her are concerned because his parents, living in [place], are going to need assistance - for the time being her 's two siblings wh o live in the area are helping. Otherwise, she noted fears and sadness related to diagnosis and reports she feels these emotions are manageable and within normal limits. This nursing home social worker did provide Fior with social work contact information if any needs do arise.Roseanna connor signed by ELHAM Lowery at 03/10/2016 3:58 PM PDTdocumented in this encoun ter Plan of Treatment +--------+ + + + + | Date | Type | Specialty | Care Team | Description | +--------+ + + + + | 04/11/ | Appointment | Radiation Oncology | Roxana Willams | | | 2019 | | | MD Hetal [address] | | | | | | [place], [place] | | | | | | [address] | | | | | | | | +--------+ + + + + documented as of this encounter Visit Diagnoses Not on filedocumented in this encounter"
--- OUTSIDE RECORDS SUMMARY | ~2019-05-31 | XMS | Encounter Summary ---
Demographics + + + | Address | [address] | | | [place] [address] | + + + | Home Phone | | + + + | Preferred Language | Unknown | + + + | Marital Status | | + + + | Congregational Affiliation | 1041 | + + + | Race | Unknown | + + + | Ethnic Group | Unknown | + + + Author + + + | Author | [facility] | | | and [place] | + + + | Organization | [facility] [...] [place] | | | | | [address] | | + + + + + Care Team Providers + +------+ + | Care Custodian Name | Role | Phone | + [...] Description | +--------+--------+ + + + | 03/01/ | Refill | [facility] | Niyah, | Medication Refill | | 2017 | | MED [facility] MED[facility] | Kirk Rodarte MD [address] | | | | | ONCOLOGY CLINIC [address] [place] | | | | | [address] [place] | [place] [address] | | | | | [place] [address] | [phone] | | | | | [phone] | | | +--------+--------+ + + + [...] | | | | | | [place], [place] | | | | | | [address] | | | | | | | | +--------+ + + + + documented as of this encounter Visit Diagnoses + + | Diagnosis | + + | Malignant neoplasm of left female breast, unspecified site of breast | + + documented in this encounter"
--- OUTSIDE RECORDS SUMMARY | ~2019-05-31 | XMS | Encounter Summary ---
Demographics + + + | Address | [address] | | | [place] [address] | + + + | Home Phone | | + + + | Preferred Language | Unknown | + + + | Marital Status | | + + + | Mandaeism Affiliation | 1041 | + + + | Race | Unknown | + + + | Ethnic Group | Unknown | + + + Author + + + | Author | [facility] | | | and Mattana | + + + | Organization | [facility] | | | and [place]ana [...] [place], [place] | | | | | [address] | | + + + + + Care Team Providers + +------+ + | Care Head Of Sales Promotion Name | Role | Phone | + [...] | Breast | Roxana M, | [address] | | | | | cancer of | [address] | [place], | | | | | upper-outer | [address] | [place] [address] | | | | | quadrant of | [place], | Phone: | | | | | left female | [place] [address] | [phone] | | | | | breast (HCC) | Phone: | Fax: | | | | | Procedures | [phone] | [phone] | | | | | CT | Fax: | | | | | | Treatment | [phone] | | | | | | Plan [...] | | ONCOLOGY CLINIC [address] | [place], [place] | of left female | | | | [address] [place] | [address] | breast (HCC) | | | | [place] [address] | | (Primary Dx) | | | | [phone] | | | +--------+ + + + [...] | | | | | | [place], [place] | | | | | | [address] | | | | | | | [...]
--- OUTSIDE RECORDS SUMMARY | ~2019-05-31 | XMS | Encounter Summary ---
Demographics + + + | Address | [address] | | | [place] [address] | + + + | Home Phone [...] + | Author | [facility] | | | and Mattana | + + + | Organization | [facility] | | | and Mattana [...] | [place] | | | | | [address] | | + + + + + Care Team Providers + +------+ + | Care Silver Spray Worker Name | Role | Phone | + +------+ + | Cordell Blake MD | PCP | | + +------+ + Reason for Visit +--------+ + | Reason | Comments | +--------+ + | Other | | +--------+ + Encounter Details +--------+ + + + + | Date | Type | Department | Care Team | Description | +--------+ + + + + | 03/08/ | Telephone | [facility] | Roxana Willams | Other | | 2016 | | [facility] | MD Richard [address] | | | | | ONCOLOGY [address] [place], [place] | | | | | [place], | [address] | | | | | [place] [address] | | | | | | [phone] | | | +--------+ + + + [...] [place] | | | | | | [id number] | | | | | | | | +--------+ + + + + documented as of this encounter Visit Diagnoses Not on filedocumented in this encounter"
--- OUTSIDE RECORDS SUMMARY | ~2019-05-31 | XMS | Encounter Summary ---
Demographics + + + | Address | [address] | | | [place] [address] | + + + | Home Phone | | + + + | Preferred Language | Unknown | + + + | Marital Status | | + + + | Nondenominational Affiliation | 1041 | + + + | Race | Unknown | + + + | Ethnic Group | Unknown | + + + Author + + + | Author | [facility] | | | and Mattana | + + + | Organization | [facility] | | | and [...] | [place] | | | | | [address] | | + + + + + Care Team Providers + +------+ + | Care Electric Detector Operator Name | Role | Phone | [...] + | 03/10/ | Documentati | [facility] | Nicolle Pollard, | Psychosocial Support | | 2015 | on | MED CTR MEDICAL | STRUCTURAL ENGINEERING PROJECT MANAGER | | | | | ONCOLOGY CLINIC [address] | | | | | | [address] | | | | | | [place] [address] | | | | | | [phone] | | | +--------+ + + + [...] Pollard MSW - 03/10/2016 3:50 PM PDTOncology Animal Care Provider met with Fior ruiz to introduce self [...] concerned about her mother's diagnosis - this case management social worker recommended she bring her daughter to an appointment with her oncologist and she states she will. She note d family health concerns because her [id number] just had a hip replacement and her father -in-law had a stroke. Fior and her are concerned because his parents, living in [place], are going to need assistance - for the time being her 's two siblings wh o live in the area are helping. Otherwise, she noted fears and sadness related to diagnosis and reports she feels these emotions are manageable and within normal limits. This case management social worker did provide Fior with social [...] [place] | | | | | | [place], [place] | | | | | | [address] | | | | | | | | +--------+ + + + + documented as of this encounter Visit Diagnoses Not on filedocumented in this encounter"
--- OUTSIDE RECORDS SUMMARY | ~2019-05-31 | XMS | Encounter Summary ---
Demographics + + + | Address | [address] | | | [place] [address] | + + + | Home Phone | | + + + | Preferred Language | Unknown | + + + | Marital Status | | + + + | Anglican Affiliation | 1041 | + + + | Race | Unknown | + + + | Ethnic Group | Unknown | + + + Author + + + | Author | [facility] | | | and Mattana | + + + | Organization | [facility] | | | and [place] [...] | [place] | | | | | [address] | | + + + + + Care Team Providers + +------+ + | Care Lease Administration Analyst Name | Role | Phone | + +------+ + | Cordell Blake MD | PCP | | + +------+ + Reason for Visit +---------+ + | Reason | Comments | +---------+ + | Results | | +---------+ + Encounter Details +--------+ + + + + | Date | Type | Department | Care Team | Description | +--------+ + + + + | 02/21/ | Telephone | [facility] | Tasha Prabhakar, | Results | | 2017 | | [facility] | RN | | | | | ONCOLOGY [address] | | | | | | [place], | | | | | | [place] [address] | | | | | | [phone] | | | +--------+ + + + [...] [place] | | | | | | [id number] | | | | | | | | +--------+ + + + + documented as of this encounter Visit Diagnoses Not on filedocumented in this encounter"
--- OUTSIDE RECORDS SUMMARY | ~2019-05-31 | XMS | Encounter Summary ---
Demographics + + + | Address | [address] | | | [place] [address] | + + + | Home Phone | | + + + | Preferred Language | Unknown | + + + | Marital Status | | + + + | Anabaptist Affiliation | 1041 | + + + | Race | Unknown | + + + | Ethnic Group | Unknown | + + + Author + + + | Author | [facility] | | | and Mattana | + + + | Organization | [facility] | | | and [place]ana [...] [place] | | | | | [address] | | + + + + + Care Team Providers + +------+ + | Care Bill Distributor Name | Role | Phone | + [...] | | | quadrant of | [address] | [place], | | | | | left female | [place], | [place] [address] | | | | | breast (HCC) | [place] | Phone: | | | | | Procedures | [address] | [phone] | | | | | [place] OFFICE | Phone: | Fax: | | | | | OUTPATIENT | [phone] | [phone] | | | | | VISIT 25 | Fax: | | | | | | MINUTES | [phone] | | + +--------+ + + + + Encounter Details +--------+ + + + + | Date | Type | Department | Care Team | Description | +--------+ + + + + | 03/26/ | Hospital | [facility] | Екатерина Roxana | Encounter for | | 2019 | Encounter | [facility] | MD Richard [address] | screening mammogram | | | | ONCOLOGY CLINIC [address] | [place], [place] | for high-risk | | | | [place] | [address] | patient (Primary | | | | [place] [address] | | Dx); Malignant | | | | [phone] | | neoplasm of | | | [...] year Labs: none Imaging: screening mammogram at [facility] next January Follow-up with Dr. Linder as [...] 0/2 sentinel lymph nodes involved, ER 95%, VT 30%, Ki-67 65%, HE R-2/juliann nonamplified by FISH. 01/20/2016 Surgery lumpectomy and sentinel lymph node 03/17/2016 - 04/07/2016 Radiation Therapy Adjuvant radiation whole breast radiation with 4256 cGy in 16 fx, completed 04/07/16 04/07/2016 - Endocrine Therapy Anastrozole Fior Gonsalves completed radiation 3 years ago, she returns for routine follow-up. Screening mammogram at [facility] 01/23/2018, BIRADS-2 Dr. Linder follow up 10/2018 [...] relevant imaging reports: 01/23/19 screening mammogram at [facility]. Benign, BIRADS-2 Assessment: ICD-10-CM ICD-9-CM 1. Encounter for screening mammogram for high-risk patient Z12.31 V76.11 [facility] Tomosynthesis Screening Bilateral 2. Malignant neoplasm [...] year Labs: none Imaging: screening mammogram at [facility] next January Follow-up with Dr. Linder as directed. Alternation of follow-up between providers an ticipated. Orders Placed This Encounter Procedures GEN Tomosynthesis Screening Bilateral Thank you for allowing me to participate in the care of Fior Gonsalves. If you should hook ve any questions regarding this evaluation, please do not hesitate to contact me. Roxana Willams M.D. Radiation Oncologist Department of Radiation Oncology [facility] Office: [phone] documented in this encounter Plan of Treatment +--------+ + + + + | Date | Type | Specialty | Care Team | Description | +--------+ + + + + | 04/11/ | Appointment | Radiation Oncology | Roxana Willams | | | 2019 | | | MD [address] | | | | | | [place], [place] | | | | | | [address] | | | | | | | [...]
--- OUTSIDE RECORDS SUMMARY | ~2019-05-31 | XMS | Encounter Summary ---
Demographics + + + | Address | [address] | | | [place] [address] | + + + | Home Phone | | + + + | Preferred Language | Unknown | + + + | Marital Status | | + + + | Quaker Affiliation | 1041 | + + + | Race | Unknown | + + + | Ethnic Group | Unknown | + + + Author + + + | Author | [facility] | | | and [place]ana | + + + | Organization | [facility] | | | and [place]ana | [...] [place] | | | | | [address] | | + + + + + Care Team Providers + +------+ + | Care Cashier And Waiter/Waitress Name | Role | Phone | + +------+ + | Cordell Blake MD | PCP | | + +------+ + Encounter Details +--------+ + + + + | Date | Type | Department | Care Team | Description | +--------+ + + + + | 03/18/ | Hospital | [facility] | Roxana Willams | | | 2016 | Encounter | MED [facility] RAD[facility]ATION | M, MD [address] | | | | | ONCOLOGY [address] [place], [place] | | | | | [place], | [address] | | | | | [place] [address] | | | | | | [phone] | | | +--------+ + + + [...] James [facility] - [facility] Note Name: Fior Gonsalves ID: [id number] Date of Service:04/01/2016 ICD-9 and Description: C50.412 [...] 9:06:36 AM Page 1 of 2 CSN: [id number] signed by Roxana James MD at 04/14/2016 9:06 AM Roxana Spencer MD - 03/18/2016 11:59 PM [facility] On Treatment Note Name: Fior Gonsalves ID: [id number] Date of Service:03/25/2016 ICD-9 and Description: C50.412 [...] 3:52:25 PM Page 1 of 2 CSN: [id number] signed by Roxana James MD at 03/25/2016 3:52 PM NATASHAO Roxana moore MD - 03/18/2016 5:[facility] On Treatment Note Name: Fior Gonsalves ID: [id number] Date of Service:03/18/2016 ICD-9 and Description: C50.412 [...] 5:11:28 PM Page 1 of 2 CSN: [id number] signed by Roxana James MD at 03/18/2016 [...] Ramos | | | | | | [facility] | | | | | | [address] | | | | | | | | +--------+ + + + + documented as of this encounter Visit Diagnoses Not on filedocumented in this encounter"
--- OUTSIDE RECORDS SUMMARY | ~2019-05-31 | XMS | Encounter Summary ---
Demographics + + + | Address | [address] | | | [place] [address] | + + + | Home Phone | | + + + | Preferred Language | Unknown | + + + | Marital Status | | + + + | Muslim Affiliation | 1041 | + + + | Race | Unknown | + + + | Ethnic Group | Unknown | + + + Author + + + | Author | [facility] | | | and Mattana | + + + | Organization | [facility] | | | and [place]ana [...] | [place] | | | | | [address] | | + + + + + Care Team Providers + +------+ + | Care Tuyere Fitter Name | Role | Phone | + +------+ + | Isaak Meyer NP | PCP | | + +------+ + Reason for Visit + + + | Reason | Comments | + + + | Follow-up | | + + + Evaluate & Treat (Routine) +--------+--------+ + + + + | Status | Reason | Specialty | Diagnoses / | Referred By | Referred To | | | | | Procedures | Contact | Contact | +--------+--------+ + + + + | Closed | | Radiation | Diagnoses | [facility] | [place], | | | | Oncology | Malignant | Radiation | Rxoana Ramos MD | | | | | neoplasm of | Oncology | [address] | | | | | upper-outer | Clinic [address] | | | | | quadrant of | [address] [place] | [place], | | | | | left female | [place], | [place] [address] | | | | | breast (HCC) | [place] | Phone: | | | | | Procedures | [address] | [phone] | | | | | [address] | Phone: | Fax: | | | | | | [phone] | [phone] | | | | | | Fax: | | | | | | | [phone] | | +--------+--------+ + + + + Encounter Details +--------+ + + + + | Date | Type | Department | Care Team | Description | +--------+ + + + + | 02/08/ | Hospital | [facility] | Roxana Willams | Malignant neoplasm | | 2018 | Encounter | [facility] | MD Richard [address] | of upper-outer | | | | ONCOLOGY CLINIC [address] | [place], [place] | quadrant of left | | | | [place] | [address] | breast in female, | | | | [place] [address] | | estrogen receptor | | | | [phone] | | positive (HCC) | | | | | | (Primary Dx) | +--------+ + + + + Social [...] + + + | Blood Pressure | 126/78 | 02/08/2018 2:55 PM | | | | | PDT | | + + + + + | Pulse | 91 | 02/08/2018 2:40 PM | | | | | PDT | | + + + + + | Temperature | 36.2 C (97.2 F) | 02/08/2018 2:40 PM | | | | | PDT | | + + + + + | Respiratory Rate | 16 | 02/08/2018 2:40 PM | | | | | PDT | | + + + + + | Oxygen Saturation | 95% | 02/08/2018 2:40 PM | | | | | PDT | | + + + + + | Inhaled Oxygen | - | - | | | Concentration | | | | + + + + + | Weight | 88 kg (194 lb 0.1 | 02/08/2018 2:40 PM | | | | oz) | PDT | | + + + + + | Height | - | - | | + + + + + | Body Mass Index | - | - | | + + + + + documented in this encounter Medications at Time [...] + +---------+ + + | anastrozole | Take one tablet by | 30 | 3 | 01/10/20 | | | (ARIMIDEX) 1 mg | mouth every day | tablet | | 18 | 8 | | tabletIndications: | | | | | | | Malignant neoplasm | | | | | | | of left female | | | | | | | breast, unspecified | | | | | | | estrogen receptor | | | | | | | status, unspecified | | | | | | | site of breast (HCC) | | | | | | + + + +---------+ + + | Coenzyme Q10 (CO | Co Q-10 | | 0 | | | | Q-10) 100 MG CAPS | | | | | 9 | + + + +---------+ + + | ferrous sulfate | Take 27 mg by mouth | | 0 | | | | (PX IRON) 27 MG TABS | Daily. | | | | 9 | + + + +---------+ + + documented as of this encounter Progress Notes Roxana Willams MD - 02/08/2018 2:44 PM PDT Radiation Oncology Follow-up Chief Complaint/ICD10 ICD-10-CM ICD-9-CM 1. Malignant neoplasm of upper-outer quadrant of left breast in female, estrogen receptor p ositive (HCC) C50.412 174.4 Z17.0 V86.0 History of Present Illness: Fior Gonsalves is a 73 year-old woman with a history of left breast cancer, pathologi c stage IA, pT1c pN0(sn) cM0. Invasive ductal carcinoma, grade 2, multifocal with tumor siz e is 2 cm and 1.0 cm. Tumor grade 2, non-extensive associated low-grade DCIS, negative roberto ins, no LVSI, 0/2 sentinel lymph nodes involved, ER 95%, AR 30%, Ki-67 65%, HER-2/juliann nonam plified by FISH. She has undergone lumpectomy and sentinel lymph node procedure and comple conor adjuvant radiation whole breast radiation with 4256 cGy in 16 fx, completed 04/07/16. Pat is almost 2 years out from the completion of radiation. She denies any lasting botherso me side-effects of treatment. No breast pain or swelling. She has not identified any lumps or nodules of concern. General health remains excellent with stable appetite and weight. S he does not report any new focal areas of pain. Continues to take anastrozole under the guidance of Dr. Linder, last seen 10/05/17. Temi cary is tolerating this medication well. Annual screening mammogram performed at [facility] on 01/20/18 was benign, BIRADS2. Review of systems: Constitutional: Denies fatigue. Denies high fevers, shaking chills, anorexia, nausea, vomit ing, weight loss, or night sweats. Appetite without changes. Ear, Nose, Mouth, Throat: Denies odynophagia, dysphagia, or tinnitus. Cardiovascular: Denies shortness of breath, dyspnea on exertion, chest pain, palpitations o r orthopnea. Respiratory: Reports recent cough. Denies hemoptysis, or sputum production. Gastrointestinal: Denies abdominal pain, constipation, diarrhea, melena, or bright red bloo d per rectum. Genitourinary: Denies hematuria or dysuria. Musculoskeletal: Reports general joint pain, right arm and shoulder pain. Neurologic: Reports occasional chronic headaches. Denies visual changes, or numbness/ting ling of the extremities. Endocrine: Denies peripheral edema or heat/cold intolerance. Hematologic: Denies spontaneous bruising or bleeding. Integumentary: Denies rash, wounds or other skin concerns. Pain: Denies pain. Pain assessment: Location: shoulders, hip Pain Level: PAIN PROG PAIN LEVEL: 3 Pain Quality: aching Current pain regimen: none Current Outpatient Prescriptions Medication Sig Dispense Refill anastrozole (ARIMIDEX) 1 mg tablet Take one tablet by mouth every day 30 tablet 3 B Complex-C (SUPER B COMPLEX PO) Take by mouth. Calcium Citrate-Vitamin D (CALCIUM CITRATE + PO) Take by mouth. Cholecalciferol (VITAMIN D-3 PO) Take by mouth. ferrous sulfate (PX IRON) 27 MG TABS Take 27 mg by mouth Daily. Multiple Vitamins-Minerals (MULTIVITAMIN ADULT PO) Take by mouth. venlafaxine (EFFEXOR) 75 MG tablet Take 75 mg by mouth Daily. No current facility-administered medications for this encounter. Allergies Allergen Reactions Codeine Nausea And Vomiting Sulfa Antibiotics Rash Intolerance No active intolerances/contraindications Vitals: 02/08/18 1440 BP: 143/76 Pulse: 91 Resp: 16 Temp: 36.2 C (97.2 F) Wt Readings from Last 3 Encounters: 02/08/18 88 kg (194 lb 0.1 oz) [...] normally with normal gait. Psychiatric: Appropriate. Breast: Exam performed in the presence of a organ recovery coordinator. On upright exam breasts appear symm etric bilaterally with no contour abnormalities or malignant appearing skin changes. The le ft breast demonstrates a well-healed surgical incision. On supine exam palpation of the lef t breast demonstrates minimal fibrosis at the site of prior lumpectomy. No discrete mass l esions are identified in either breast. There is no pain with palpation. No nipple changes . Labs: No recent results. Imaging: See HPI. Assessment: ICD-10-CM ICD-9-CM 1. Malignant neoplasm of upper-outer quadrant of left breast in female, estrogen receptor p ositive (HCC) C50.412 174.4 Z17.0 V86.0 Fior Gonsalves is a 73 y.o. female with a history of early stage, ER+, Her2- left breast cancer. She underwent breast conserving surgery and adjuvant radiation almost 2 years ago. Continues on adjuvant endocrine therapy. History and exam in clinic today are benign, no e vidence for disease recurrence. She is up-to-date on mammography which is also benign. Plan: -Annual mammogram due in Jan 2019. -Follow-up with Dr. Linder in October 2018 as directed with on going adjuvant anastr ozole. -Follow-up with me in 1 year, sooner if needed. Thank you for allowing me to participate in the care of Fior Gonsalves. If you should hook ve any questions regarding this evaluation, please do not hesitate to contact me. Roxana Willams M.D. Radiation Oncologist Department of Radiation Oncology [facility] Office: [phone] CC: Patient Care Team: Cordell Balke MD as PCP - General (Internal Medicine) Fior Lara MD (Obstetrics and Gynecology) Kirk Linder MD as Consulting Physician (Medical Oncology) Ap Pascual (Surgery) Roxana Willams MD as Physician (Radiation Oncology) documented in this encounter Plan of Treatment +--------+ + + + + | Date | Type | Specialty | Care Team | Description | +--------+ + + + + | 04/11/ | Appointment | Radiation Oncology | Roxana Willams | | | 2019 | | | MD Hetal Ramos | | | | | | [facility] [place] | | | | | | [address] | | | | | | | [...] section. | + +--------+ + + + | LABS - EXTERNAL SCAN | | 11/01/2018 | | Results for this | | | | 12:00 AM | | procedure are in the | | | | PDT | | results section. | + +--------+ + + + | LABS - EXTERNAL SCAN | | 11/01/2018 | | Results for this | | | | 12:00 AM | | procedure are in the | | | | PDT | | results section. | + +--------+ + + + | IMAGING REPORT - | | 01/20/2018 | | Results for this | | [...] unspecified provider. | | + + + LABS - EXTERNAL SCAN (11/01/2018 12:00 AM PDT) + + + | Narrative | Performed At | + + + | Ordered by an | | | unspecified provider. | | + + + LABS - EXTERNAL SCAN (11/01/2018 12:00 AM PDT) + + + | Narrative | Performed At | + + + | Ordered by an | | | unspecified provider. | | + + + IMAGING REPORT - EXTERNAL SCAN (01/20/2018 12:00 AM PDT) + + + | Narrative | Performed At | + + + | Ordered by an | | | unspecified provider. | | + + + documented in this encounter Visit Diagnoses + + | Diagnosis | + + | Malignant neoplasm of upper-outer quadrant of left breast in female, estrogen receptor | | positive (HCC) - Primary | + + documented in this encounter"
--- OUTSIDE RECORDS SUMMARY | ~2019-05-31 | XMS | Encounter Summary ---
Demographics + + + | Address | [address] | | | [place] [address] | + + + | Home Phone | | + + + | Preferred Language | Unknown | + + + | Marital Status | | + + + | Islam Affiliation | 1041 | + + + | Race | Unknown | + + + | Ethnic Group | Unknown | + + + Author + + + | Author | [facility] | | | and Mattana | + + + | Organization | [facility] | | | and Mattana [...] | [place] | | | | | [address] | | + + + + + Care Team Providers + +------+ + | Care Hydraulic Tester Name | Role | Phone | + +------+ + | Cordell Blake MD | PCP | | + +------+ + Reason for Visit +---------+ + | Reason | Comments | +---------+ + | Results | | +---------+ + Encounter Details +--------+ + + + + | Date | Type | Department | Care Team | Description | +--------+ + + + + | 08/04/ | Telephone | [facility] | Tasha Prabhakar, | Results | | 2017 | | [facility] | RN | | | | | ONCOLOGY [address] | | | | | | [place], | | | | | | [place] [address] | | | | | | [phone] | | | +--------+ + + + [...] 04/11/ | Appointment | Radiation Oncology | Carmina Willamsen | | | 2020 | | | MD Richard [address] | | | | | | [place] | | | | | | [address] | | | | | | | [...] | | e | screening mammogram | 01/31/2017, Expires: | | | | | for high-risk | 10/02/2017 | | | | | patient | | + +---------+--------+ + + documented as of this encounter Visit Diagnoses + + | Diagnosis | + + | Encounter for screening mammogram for high-risk patient - Primary | + + documented in this encounter"
--- OUTSIDE RECORDS SUMMARY | ~2019-05-31 | XMS | Encounter Summary ---
Demographics + + + | Address | [address] | | | [place] [address] | + + + | Home Phone | | + + + | Preferred Language | Unknown | + + + | Marital Status | | + + + | Sabianism Affiliation | 1041 | + + + | Race | Unknown | + + + | Ethnic Group | Unknown | + + + Author + + + | Author | [facility] | | | and [place] | + + + | Organization | [facility] | | | and [place] | + + + | Address | Unknown | + + + | Phone | Unavailable | + + + Support + + + + + | Name | Relationship | Address | Phone | + + + + + | Jon nAne | ECON | [address] | | | | | [place] | | | | | [address] | | + + + + + Care Team Providers + +------+ + | Care Truck Driver Helper Name | Role | Phone | + [...] Description | +--------+--------+ + + + | 08/20/ | Refill | [facility] | Niyah, | Medication Refill | | 2018 | | [facility] | Kirk Rodarte MD [address] | | | | | ONCOLOGY CLINIC [address] [place] | | | | | [place] | [place] [address] | | | | | [place] [address] | [phone] | | | | | [phone] | | | +--------+--------+ + + + [...] | | | | | | [place], [place] | | | | | | [address] | | | | | | | | +--------+ + + + + documented as of this encounter Visit Diagnoses + + | Diagnosis | + + | Malignant neoplasm of left female breast, unspecified estrogen receptor status, | | unspecified site of breast (HCC) - Primary | + + documented in this encounter"
--- OUTSIDE RECORDS SUMMARY | ~2019-05-31 | XMS | Encounter Summary ---
Demographics + + + | Address | [address] | | | [place] [address] | + + + | Home Phone | | + + + | Preferred Language | Unknown | + + + | Marital Status | | + + + | Caodaism Affiliation | 1041 | + + + | Race | Unknown | + + + | Ethnic Group | Unknown | + + + Author + + + | Author | [facility] | | | and Mattana | + + + | Organization | [facility] | | | and [...] [place], [place] | | | | | [address] | | + + + + + Care Team Providers + +------+ + | Care Web Graphic Designer Name | Role | Phone | + [...] | Breast | Roxana M, | [address] | | | | | cancer of | MD [address] | [place], | | | | | upper-outer | [address] | [place] [address] | | | | | quadrant of | [place], | Phone: | | | | | left female | [place] [address] | [phone] | | | | | breast (HCC) | Phone: | Fax: | | | | | Procedures | [phone] | [phone] | | | | | CT | Fax: | | | | | | Treatment | [phone] | | | | | | Plan Complex | | | +--------+--------+ + + + + Reason for Visit Diagnostic/Screening (Routine) +--------+--------+ + + + + | Status | Reason | Specialty | Diagnoses / | Referred By | Referred To | | | | | Procedures | Contact | Contact | +--------+--------+ + + + + | Closed | | Radiology | Diagnoses | Екатерина, | [address] | | | | | Breast | Roxana M, | [address] [place] | | | | | cancer of | MD [address] | [address], | | | | | upper-outer | [address] | [place] [address] | | | | | quadrant of | [place], | Phone: | | | | | left female | [place] [address] | [phone] | | | | | breast (HCC) | Phone: | Fax: | | | | | Procedures | [phone] | [phone] | | | | | CT | Fax: | | | | | | Treatment | [phone] | | | | | | Plan Complex | | | +--------+--------+ + + + + Encounter Details +--------+ + + + + | Date | Type | Department | Care Team | Description | +--------+ + + + + | 03/10/ | Hospital | [facility] | Roxana Willams | Breast cancer of | | 2016 | Encounter | MED CTR [address] | MMD [address] | upper-outer quadrant | | | | [place], | [place], [place] | of left female | | | | [place] [address] | [address] | breast (HCC) | | | | [phone] | | | +--------+ + + + [...] | | | | | | [place], [place] | | | | | | [address] | | | | | | | | +--------+ + + + + documented as of this encounter Procedures + +--------+ + + + | Procedure Name | Priori | Date/Time | Associated Diagnosis | Comments | | | ty | | | | + +--------+ + + + | CT TREATMENT PLAN | Routin | 03/10/2016 | Breast cancer of | Results for this | | COMPLEX | e | 10:38 AM | upper-outer quadrant | procedure are in the | | | | PDT | of left female | results section. | | | | | breast (HCC) | | + +--------+ + + + documented in this encounter Results CT Treatment Plan Complex [...] upper-outer quadrant of left female breast (HCC) | + + documented in this encounter"
--- OUTSIDE RECORDS SUMMARY | ~2019-05-31 | XMS | Encounter Summary ---
Demographics + + + | Address | [address] | | | [place] [address] | + + + | Home Phone | | + + + | Preferred Language | Unknown | + + + | Marital Status | | + + + | Mosque Affiliation | 1041 | + + + | Race | Unknown | + + + | Ethnic Group | Unknown | + + + Author + + + | Author | [facility] | | | and Mattana | + + + | Organization | [facility] | | | and Mattana [...] [place], [place] | | | | | [address] | | + + + + + Care Team Providers + +------+ + | Care Recruiting Coordinator Name | Role | Phone | + [...] | | unspecified | [place], | [place] [address] | | | | | female | [place] [address] | Phone: | | | | | breast (HCC) | Phone: | [phone] | | | | | | [phone] | Fax: | | | | | Consult/Stg | Fax: | [phone] | | | | | I Breast | [phone] | | | | | | Ca/Ankur [...] | | | | | | | MS OFFICE | | | | | | [...] + + | 03/02/ | Hospital | [facility] | LollysammyRoxana martines | | | 2016 | Encounter | MED CTR RADIATION | MD Richard [address] | | | | | ONCOLOGY [address] | [address] [place], [place] | | | | | [place], | [address] | | | | | [place] [address] | | | | | | [phone] | | | +--------+ + + + [...]
--- OUTSIDE RECORDS SUMMARY | ~2019-05-31 | XMS | Encounter Summary ---
Demographics + + + | Address | [address] | | | [place] [address] | + + + | Home Phone | | + + + | Preferred Language | Unknown | + + + | Marital Status | | + + + | Catholic Affiliation | 1041 | + + + | Race | Unknown | + + + | Ethnic Group | Unknown | + + + Author + + + | Author | [facility] | | | and Mattana | + + + | Organization | [facility] [...] [place] | | | | | [address] | | + + + + + Care Team Providers + +------+ + | Care Land Surveyor Assistant Name | Role | Phone | + [...] Description | +--------+--------+ + + + | 10/01/ | Refill | [facility] | Niyah, | Medication Refill | | 2017 | | [facility] | Kirk Rodarte MD [address] | | | | | ONCOLOGY CLINIC [address] | [address] [place] | | | | | [place] | [place] [address] | | | | | [place] [address] | [phone] | | | | | [phone] | | | +--------+--------+ + + + [...] | | | | | | [place], [place] | | | | | | [address] | | | | | | | | +--------+ + + + + documented as of this encounter Visit Diagnoses + + | Diagnosis | + + | Malignant neoplasm of left female breast, unspecified site of breast - Primary | + + documented in this encounter"
--- OUTSIDE RECORDS SUMMARY | ~2019-05-31 | XMS | Encounter Summary ---
Demographics + + + | Address | [address] | | | [place] [address] | + + + | Home Phone | | + + + | Preferred Language | Unknown | + + + | Marital Status | | + + + | Pentecostal Affiliation | 1041 | + + + | Race | Unknown | + + + | Ethnic Group | Unknown | + + + Author + + + | Author | [facility] | | | and Mattana | + + + | Organization | [facility] | | | and Mattana | [...] [place] | | | | | [address] | | + + + + + Care Team Providers + +------+ + | Care Utility Worker Roller Shop Name | Role | Phone | + [...] Refill | | 2018 | | [facility] | Kirk Rodarte MD [address] | | | | | ONCOLOGY CLINIC [address] | [address] [place] | | | | | [address] [place] | [place] [address] | | | | | [place] [address] | [phone] | | | | | [phone] | | | +--------+--------+ + + + [...] | | | | | | [place], [place] | | | | | | [address] | | | | | | | | +--------+ + + + + documented as of this encounter Visit Diagnoses + + | Diagnosis | + + | Malignant neoplasm of left female breast, unspecified estrogen receptor status, | | unspecified site of breast (HCC) - Primary | + + documented in this encounter"
--- OUTSIDE RECORDS SUMMARY | ~2019-05-31 | XMS | Encounter Summary ---
Demographics + + + | Address | [address] | | | [place] [address] | + + + | Home Phone | | + + + | Preferred Language | Unknown | + + + | Marital Status | | + + + | Oriental Orthodox Affiliation | 1041 | + + + | Race | Unknown | + + + | Ethnic Group | Unknown | + + + Author + + + | Author | [facility] | | | and Mattana | + + + | Organization | [facility] | | | and [...] | [place] | | | | | [address] | | + + + + + Care Team Providers + +------+ + | Care Laborer Poultry Hatchery Name | Role | Phone | + [...] [place], [place] | | | | | [place], | [address] | | | | | [place] [address] | | | | | | [phone] | | | +--------+ + + + [...] [place] | | | | | | [id number] | | | | | | | | +--------+ + + + + documented as of this encounter Visit Diagnoses Not on filedocumented in this encounter"
--- OUTSIDE RECORDS SUMMARY | ~2019-05-31 | XMS | Encounter Summary ---
Demographics + + + | Address | [address] | | | [place] [address] | + + + | Home Phone | | + + + | Preferred Language | Unknown | + + + | Marital Status | | + + + | Moravian Affiliation | 1041 | + + + | Race | Unknown | + + + | Ethnic Group | Unknown | + + + Author + + + | Author | [facility] | | | and Mattana | + + + | Organization | [facility] | | | and Mattana [...] | [place] | | | | | [address] | | + + + + + Care Team Providers + +------+ + | Care Shoe Packer Name | Role | Phone | + [...] W | | | | | | [place], | | | | | | [place] [address] | | | | | | [phone] | | | +--------+ + + + [...] | Appointment | Radiation Oncology | Roxana iWllams | | | 2020 | | | MD Richard [address] | | | | | | [place] | | | | | | [id number] | | | | | | | | +--------+ + + + + documented as of this encounter Visit Diagnoses Not on filedocumented in this encounter"
--- OUTSIDE RECORDS SUMMARY | ~2019-05-31 | XMS | Clinical Summary ---
Demographics + + + | Address | [address] | | | [place] [address] | + + + | Home Phone | | + + + | Preferred Language | Unknown | + + + | Marital Status | | + + + | Jewish Affiliation | 1041 | + + + | Race | Unknown | + + + | Ethnic Group | Unknown | + + + Author + + + | Author | [facility] | | | and Mattana | + + + | Organization | [facility] | | | and Mattana [...] [place], [place] | | | | | [address] | | + + + + + Care Team Providers + +------+ + | Care Breadman Name | Role | Phone | + [...] [place] | | | | | | [address] | | | | | | | [...] +--------+ +---------+--------+ | BCBS | BCBS | [id number] | 06/13/19 | | | PPO | | | FEDER[employer] | | 16-Pre | | | | | | L FEP | | sent | | | | + +--------+ +--------+ +---------+--------+ | MEDICARE | MEDICA | [id number] | 12/12/19 | [phone] | | Medica [...] | 1945 | [phone] | [place] [address] | | | mikael | | | 5 (Home) | | + +--------+ +--------+ + + Advance Directives + + + + + | Type | Date Recorded | Patient | Explanation | | | | Cat Hooker | | + + + + + | Power of | | | | | Bearing Inspector | | | | + + + + + | Advance | | | | | Directive | | | | + + + + +"
--- OUTSIDE RECORDS SUMMARY | ~2019-05-31 | XMS | Encounter Summary ---
Demographics + + + | Address | [address] | | | [place] [address] | + + + | Home Phone | | + + + | Preferred Language | Unknown | + + + | Marital Status | | + + + | Zoroastrian Affiliation | 1041 | + + + | Race | Unknown | + + + | Ethnic Group | Unknown | + + + Author + + + | Author | [facility] | | | and Mattana | + + + | Organization | [facility] | | | and [...] , [place] | | | | | [address] | | + + + + + Care Team Providers + +------+ + | Care Mutual Fund Analyst Name | Role | Phone | [...] | | | | | | [place] [address] | | | | | | [phone] | | | +--------+ + + + [...] plan however she declined an [facility] person [facility] visit. Her care plan with accompanying [...] rehab program at her local gym ([employer]) and a booklet titled After Treatment Ends: [...] [place] | | | | | | [place], [place] | | | | | | [address] | | | | | | | | +--------+ + + + + documented as of this encounter Visit Diagnoses Not on filedocumented in this encounter"
--- OUTSIDE RECORDS SUMMARY | ~2019-05-31 | XMS | Encounter Summary ---
Demographics + + + | Address | [address] | | | [place] [address] | + + + | Home Phone | | + + + | Preferred Language | Unknown | + + + | Marital Status | | + + + | Christian Affiliation | 1041 | + + + | Race | Unknown | + + + | Ethnic Group | Unknown | + + + Author + + + | Author | [facility] | | | and Mattana | + + + | Organization | [facility] | | | and Mattana [...] [place], [place] | | | | | [address] | | + + + + + Care Team Providers + +------+ + | Care Rag Boiler Name | Role | Phone | + +------+ + | Cordell Blake MD | PCP | | + +------+ + Reason for Visit + + + | Reason | Comments | + + + | IDT Note | | + + + Encounter Details +--------+ + + + + | Date | Type | Department | Care Team | Description | +--------+ + + + + | 03/12/ | Telephone | [facility] | AkiFaithTasha M, | IDT Note | | 2015 | | MED CTR RADIATION | RN | | | | | ONCOLOGY [address] | | | | | | [place], | | | | | | [place] [address] | | | | | | [phone] | | | +--------+ + + + [...]
--- OUTSIDE RECORDS SUMMARY | ~2019-05-31 | XMS | Encounter Summary ---
Demographics + + + | Address | [address] | | | [place] [address] | + + + | Home Phone | | + + + | Preferred Language | Unknown | + + + | Marital Status | | + + + | Buddhist Affiliation | 1041 | + + + | Race | Unknown | + + + | Ethnic Group | Unknown | + + + Author + + + | Author | [facility] | | | and Mattana | + + + | Organization | [facility] | | | and Mattana [...] [place] | | | | | [address] | | + + + + + Care Team Providers + +------+ + | Care Vault Service Mechanic Name | Role | Phone | + [...] Description | +--------+--------+ + + + | 10/04/ | Refill | [facility] | Niyah, | Medication Refill | | 2017 | | [facility] | Kirk Rodarte MD [address] | | | | | ONCOLOGY CLINIC [address] | [address] [place] | | | | | [place] | [place] [address] | | | | | [place] [address] | [phone] | | | | | [phone] | | | +--------+--------+ + + + [...] [place] | | | | | | [address] | | | | | | | | +--------+ + + + + documented as of this encounter Visit Diagnoses Not on filedocumented in this encounter"
--- OUTSIDE RECORDS SUMMARY | ~2019-05-31 | XMS | Encounter Summary ---
Demographics + + + | Address | [address] | | | [place] [address] | + + + | Home Phone | | + + + | Preferred Language | Unknown | + + + | Marital Status | | + + + | Samaritan Affiliation | 1041 | + + + | Race | Unknown | + + + | Ethnic Group | Unknown | + + + Author + + + | Author | [facility] | | | and Mattana | + + + | Organization | [facility] | | | and [...] [place], [place] | | | | | [address] | | + + + + + Care Team Providers + +------+ + | Care Tracer Powder Blender Name | Role | Phone | + [...] W | | | | | | [place], | | | | | | [place] [address] | | | | | | [phone] | | | +--------+ + + + [...]
--- OUTSIDE RECORDS SUMMARY | ~2019-05-31 | XMS | Encounter Summary ---
Demographics + + + | Address | [address] | | | [place] [address] | + + + | Home Phone | | + + + | Preferred Language | Unknown | + + + | Marital Status | | + + + | Yarsani Affiliation | 1041 | + + + | Race | Unknown | + + + | Ethnic Group | Unknown | + + + Author + + + | Author | [facility] | | | and Mattana | + + + | Organization | [facility] | | | and [...] , [place] | | | | | [address] | | + + + + + Care Team Providers + +------+ + | Care Piercer Name | Role | Phone | + [...] W | | | | | | [address] [place], | | | | | | [place] [address] | | | | | | [phone] | | | +--------+ + + + [...] Echeverria, OT - [facility]/18/2016 3[facility] [address] [facility] [address] Oncology Rehab Screening Date: 03/18/2016 Patient Information Patient Name: Firo Gonsalves Date of : 1945 Age: 71 [...] [place] | | | | | | [facility] [place] | | | | | | [address] | | | | | | | | +--------+ + + + + documented as of this encounter Visit Diagnoses Not on filedocumented in this encounter"
--- OUTSIDE RECORDS SUMMARY | ~2019-05-31 | XMS | Encounter Summary ---
Demographics + + + | Address | [address] | | | [place] [address] | + + + | Home Phone | | + + + | Preferred Language | Unknown | + + + | Marital Status | | + + + | Latter-Day Affiliation | 1041 | + + + | Race | Unknown | + + + | Ethnic Group | Unknown | + + + Author + + + | Author | [facility] | | | and Mattana | + + + | Organization | [facility] | | | and Mattana [...] | [place] | | | | | [address] | | + + + + + Care Team Providers + +------+ + | Care Reel Cart Operator Name | Role | Phone | [...] | | | quadrant of | [address] | [place], | | | | | left female | [place], | [place] [address] | | | | | breast (HCC) | [place] | Phone: | | | | | Procedures | [address] | [phone] | | | | | [address] | Phone: | Fax: | | | | | | [phone] | [phone] | | | | | | Fax: | | | | | | | [phone] | | +--------+--------+ + + + + Encounter Details +--------+ + + + + | Date | Type | Department | Care Team | Description | +--------+ + + + + | 02/08/ | Hospital | [facility] | Roxana Willams | Malignant neoplasm | | 2018 | Encounter | MED CTR RADIATION | MD Richard [address] | of upper-outer | | | | ONCOLOGY CLINIC [address] | [place], [place] | quadrant of left | | | | [place] | [address] | breast in female, | | | | [place] [address] | | estrogen receptor | | | | [phone] | | positive (HCC) | | | [...] 0/2 sentinel lymph nodes involved, ER 95%, SC 30%, Ki-67 65%, HER-2/juliann nonam plified by [...] medication well. Annual screening mammogram performed at [facility] on 01/20/18 was benign, BIRADS2. Review of [...] Exam performed in the presence of a flaking roll operator. On upright exam breasts appear symm etric [...] M.D. Radiation Oncologist Department of Radiation Oncology [facility] Office: [phone] CC: Patient Care Team: Cordell Blake MD as PCP - General (Internal Medicine) [...] [place] | | | | | | [facility] [place] | | | | | | [address] | | | | | | | [...]
--- OUTSIDE RECORDS SUMMARY | ~2019-05-31 | XMS | Encounter Summary ---
Demographics + + + | Address | [address] | | | [place] [address] | + + + | Home Phone | | + + + | Preferred Language | Unknown | + + + | Marital Status | | + + + | Uatsdin Affiliation | 1041 | + + + | Race | Unknown | + + + | Ethnic Group | Unknown | + + + Author + + + | Author | [facility] | | | and [place] | + + + | Organization | [facility] | | | and [place] [...] , [place] | | | | | [address] | | + + + + + Care Team Providers + +------+ + | Care Bundle Tier Name | Role | Phone | + +------+ + | Cordell Blake MD | PCP | | + +------+ + Encounter Details +--------+ + + + + | Date | Type | Department | Care Team | Description | +--------+ + + + + | 02/09/ | Hospital | [facility] | Roxana Willams | Encounter for | | 2017 | Encounter | MED CTR RADIATION | Richard, [address] | screening mammogram | | | | ONCOLOGY [address] [place], [place] | for high-risk | | | | [place], | [address] | patient (Primary Dx) | | | | [place] [address] | | | | | | [phone] | | | +--------+ + + + [...] + + documented as of this encounter Discharge Instructions Patient Instructions Tasha Prabhakar RN - 02/09/2017 3:26 PM PDT Screening mammogram due late January 2018 at [facility] Follow--up with Dr. Herrera in 1 yearElectronically signed by Tasha Prabhakar RN at 02/09 3:27 PM PDT documented in this encounter Medications at Time [...] TAKE ONE TABLET BY | 30 | 4 | 10/02/19 | | | (ARIMIDEX) 1 mg | MOUTH EVERY DAY | tablet | | 17 | 7 | | tabletIndications: | | | | | | | Malignant neoplasm | | | | | | | of left female | | | | | | | breast, unspecified | | | | | | | site of breast | | | | | | + + + +---------+ + + | Coenzyme Q10 | Take by mouth. | | 0 | | | | (COQ10 PO) | | | | | 8 | + + + +---------+ + + | ferrous sulfate | Take 27 mg by mouth | | 0 | | | | (PX IRON) 27 MG TABS | Daily. | | | | 9 | + + + +---------+ + + documented as of this encounter Progress Notes Roxana James MD - 02/09/2017 12:00 AM [facility] Radiation Oncology Follow-up Note PATIENT: Fior Gonsalves MR#: [id number] :1945 DOS:02/09/2017 ICD/Diagnosis: C50.412 - Malignant neoplasm of upper-outer quadrant of left female breast, Diagnosed 03/02 16 (Active) Chief Complaint/History of Present Illness: Fior Gonsalves is a 72 year-old woman with a history of left breast cancer, pathologi c stage IA, pT1c pN0(sn) cM0. Invasive ductal carcinoma, grade 2, multifocal with tumor siz e is 2 cm and 1.0 cm. Tumor grade 2, non-extensive associated low-grade DCIS, negative roberto ins, no LVSI, 0/2 sentinel lymph nodes involved, ER 95%, WA 30%, Ki-67 65%, HER-2/juliann nonam plified by FISH. She has undergone lumpectomy and sentinel lymph node procedure and comple conor adjuvant radiation whole breast radiation with 4256 cGy in 16 fx, completed 04/07/16. Pat is overall well, but recently concerned about low back pain. This was exacerbated by physical activity, no neurologic compromise or radicular symptoms. Symptoms have persisted for few weeks. She plans undergo CT of the spine and the next few days, as ordered by her primary care physician. Otherwise she has no breast concerns. Denies any significant br east pain. No lumps or nodules of concern. Annual screening mammogram on 01/18/17 at [facility] is benign, BI-RADS Category 2. Continues taking adjuvant anastrozole under the care of Dr. Linder and tolerating this medication well. Review of Systems: ROS ConstitutionalNormal - Denies lack of appetite, fatigue, fever, night sweats, rigors / chills and change in weight.ROS EyesNormal - Denies blurred vision, double vision and visu al difficulties.ROS ENMTAbnormal - Complains of sinusitis with allergic rhinitis. Denies dy sphagia and esophagitis.ROS Neck Abnormal - Complains of neck pain. Denies neck masses, mus jeff weakness, decreased range of motion and swelling of the neck.ROS IntegumentaryNormal - Denies blistering, bruising, dry skin, pruritus and rash.ROS BreastsNormal - Denies pain.R OS CardiovascularNormal - Denies arrhythmias, chest pain, dyspnea, edema and palpitations.R OS RespiratoryAbnormal - Complains of cough. Denies dyspnea, hemoptysis and wheezing.ROS Ga strointestinalAbnormal - Complains of heartburn / dyspepsia. Denies abdominal pain, constip ation, diarrhea, nausea and vomiting.ROS Genitourinary (F)Normal - Denies dysuria, frequen cy, nocturia, urgency and urine color change.ROS Musculoskeletal Abnormal - Complains of ar thritis and joint pain. Denies muscle weakness and decreased range of motion.ROS Neurologic Abnormal - Complains of headaches. Denies dizziness, motor weakness and sensory problems.RO S PsychiatricAbnormal - Complains of mood swings. Denies depression and euphoria.ROS Endocr ine Normal - Denies diabetes, hot flashes and thyroid disease.ROS Hematologic/LymphaticNor mal - Denies easy bruising and tender or enlarged lymph nodes. Medications: Patient medications reviewed and updated within the hospital EMR. See EMR for complete lis t. Allergies: Patient allergies reviewed and updated within the hospital EMR. See EMR for complete list. Vital Signs: Performed on 02/09/2017, 15:05Weight 87.1 kg Temperature 36.4 C (LOW) Pulse 76 / min Respiration 1 6 / min BP130/76 mm(hg) O2 Sat 95 % (LOW) Pain 3 Physical Exam: General: Healthy appearing woman in [...] exam palpation of the left breast demonstrates minimal fibrosis at th e site of prior lumpectomy. No discrete mass lesions are identified in either breast. The re is no pain with palpation. No nipple changes. Questionnaires: Are you having pain?YesWhere does it hurt most?back painRate your pain from 0-10: 0-10 scale with 0 = no pain and 10= worst aqes5Oehfvdnb your pain (quality) i.e. aching, s harp, stabbing, etc.sciatica painWhat do you use for pain medication? Name and doseIbuprofe n Imaging, pathology and pertinent labs reviewed personally and described above in history o f present illness. Impression/Plan: 72 year-old woman with a history of left breast cancer, pathologic stage IA, pT1c pN0(sn) cM0. Invasive ductal carcinoma, grade 2, multifocal with tumor size is 2 cm and 1.0 cm. Tu mor grade 2, non-extensive associated low-grade DCIS, negative margins, no LVSI, 0/2 sentin el lymph nodes involved, ER 95%, WA 30%, Ki-67 65%, HER-2/juliann nonamplified by FISH. She has undergone lumpectomy and sentinel lymph node procedure and completed adjuvant radiation w hole breast radiation with 4256 cGy in 16 fx, completed 04/07/16. Today we reviewed her clinical symptoms and neck performed breast exam. Also radiate rece nt mammography. History is notable for recent back pain. Characteristics are most consiste nt with benign etiology. It is reasonable for her to undergo CT imaging as ordered by her primary care physician. Apart from this issue there is no concerning findings on history a nd exam. Recent mammography negative. Continues to do well on adjuvant endocrine therapy as well. Plan: - CT spine per PCP for back pain. I will follow up on results. - Continue follow-up with Dr. Linder as directed with adjuvant endocrine therapy. - Follow-up with me in 1 year with annual mammogram. Annual mammogram due in January [address] [facility]. Thank you for allowing me to participate in the care of Fior Hutchisonlivan. If you should have any questions regarding this evaluation, please do not hesitate to contact me. Roxana Herrera M.D. Radiation Oncologist Department of Radiation Oncology [facility] Electronically signed by Roxana James M.D CC: Cordell Blake M.D. Ap Pascual M.D. Fior Lara M.D. Kirk Linder M.D. This note was transcribed using [employer] speech recognition software. As a result, there ma y be unintended for medical and/or spelling errors. Every attempt is made to correct dicta tion. If there are any questions or errors please contact our office. CSN: [id number] signed by Roxana James MD at 03/03/2017 11:27 AM PDTd ocumented in this encounter Plan of Treatment +--------+ + + + + | Date | Type | Specialty | Care Team | Description | +--------+ + + + + | 04/11/ | Appointment | Radiation Oncology | Roxana Willams | | | 2019 | | | MD Richard [address] | | | | | | [facility] [place] | | | | | | [id number] | | | | | | | | +--------+ + + + + documented as of this encounter Visit Diagnoses + + | Diagnosis | + + | Encounter for screening mammogram for high-risk patient - Primary | + + documented in this encounter"
--- OUTSIDE RECORDS SUMMARY | ~2019-05-31 | XMS | Encounter Summary ---
Demographics + + + | Address | [address] | | | [place] [address] | + + + | Home Phone | | + + + | Preferred Language | Unknown | + + + | Marital Status | | + + + | Samaritan Affiliation | 1041 | + + + | Race | Unknown | + + + | Ethnic Group | Unknown | + + + Author + + + | Author | [facility] | | | and [place] | + + + | Organization | [facility] | | | and [place] [...] | [place] | | | | | [address] | | + + + + + Care Team Providers + +------+ + | Care Director Electronics Name | Role | Phone | + [...] Description | +--------+--------+ + + + | 06/01/ | Refill | [facility] | Niyah, | Medication Refill | | 2018 | | MED [facility] | Kirk Rodarte MD [address] | | | | | ON[address]OGY CLINIC [address] [place] | | | | | [address] [place] | [place] [address] | | | | | [place] [address] | [phone] | | | | | [phone] | | | +--------+--------+ + + + [...] [address] | | | | | | [place], [place] | | | | | | [address] | | | | | | | | +--------+ + + + + documented as of this encounter Visit Diagnoses + + | Diagnosis | + + | Malignant neoplasm of upper-outer quadrant of left female breast, unspecified estrogen | | receptor status (HCC) - Primary | + + documented in this encounter"
--- OUTSIDE RECORDS SUMMARY | ~2019-05-31 | XMS | Encounter Summary ---
Demographics + + + | Address | [address] | | | [place] [address] | + + + | Home Phone | | + + + | Preferred Language | Unknown | + + + | Marital Status | | + + + | Cheondoism Affiliation | 1041 | + + + | Race | Unknown | + + + | Ethnic Group | Unknown | + + + Author + + + | Author | [facility] | | | and [place] | + + + | Organization | [facility] | | | and [...] [place] | | | | | [address] | | + + + + + Care Team Providers + +------+ + | Care A R Collections Rep Name | Role | Phone | + [...] Refill | | 2017 | | MED [facility] | Kirk Rodarte MD [address] | | | | | ONCOLOGY CLINIC [address] | [address] [place] | | | | | [address] [place] | [place] [address] | | | | | [place] [address] | [phone] | | | | | [phone] | | | +--------+--------+ + + + [...] | | | | | | [place], [place] | | | | | | [address] | | | | | | | | +--------+ + + + + documented as of this encounter Visit Diagnoses + + | Diagnosis | + + | Malignant neoplasm of left female breast, unspecified site of breast | + + documented in this encounter"
--- OUTSIDE RECORDS SUMMARY | ~2019-05-31 | XMS | Encounter Summary ---
Demographics + + + | Address | [address] | | | [place] [address] | + + + | Home Phone | | + + + | Preferred Language | Unknown | + + + | Marital Status | | + + + | Judaism Affiliation | 1041 | + + + | Race | Unknown | + + + | Ethnic Group | Unknown | + + + Author + + + | Author | [facility] | | | and [place]ana | + + + | Organization | [facility] | | | and [...] [place] | | | | | [address] | | + + + + + Care Team Providers + +------+ + | Care Box Inspector Name | Role | Phone | + [...] Refill | | 2017 | | MED [facility] | Kirk Rodarte MD [address] | | | | | ON[address]OGY CLIN[address] | [address] [place] | | | | | [address] [place] | [place] [address] | | | | | [place] [address] | [phone] | | | | | [phone] | | | +--------+--------+ + + + [...] [place] | | | | | | [address] | | | | | | | | +--------+ + + + + documented as of this encounter Visit Diagnoses Not on filedocumented in this encounter"
--- OUTSIDE RECORDS SUMMARY | ~2019-05-31 | XMS | Encounter Summary ---
Demographics + + + | Address | [address] | | | [place] [address] | + + + | Home Phone | | + + + | Preferred Language | Unknown | + + + | Marital Status | | + + + | Congregational Affiliation | 1041 | + + + | Race | Unknown | + + + | Ethnic Group | Unknown | + + + Author + + + | Author | [facility] | | | and [place] | + + + | Organization | [facility] | | | and [place] [...] | [place] | | | | | [address] | | + + + + + Care Team Providers + +------+ + | Care Water Pollution Scientist Name | Role | Phone | + [...] [address] | | | | | | [place], | | | | | | [place] [address] | | | | | | [phone] | | | +--------+ + + + [...] [place] | | | | | | [address] | | | | | | | [...]
--- OUTSIDE RECORDS SUMMARY | ~2019-05-31 | XMS | Encounter Summary ---
Demographics + + + | Address | [address] | | | [place] [address] | + + + | Home Phone | | + + + | Preferred Language | Unknown | + + + | Marital Status | | + + + | Anglican Affiliation | 1041 | + + + | Race | Unknown | + + + | Ethnic Group | Unknown | + + + Author + + + | Author | [facility] | | | and [place] | + + + | Organization | [facility] | | [...] | [place] | | | | | [address] | | + + + + + Care Team Providers + +------+ + | Care Aniline Press Worker Name | Role | Phone | [...] Refill | | 2018 | | MED [facility] | Kirk Rodarte MD [address] | | | | | ON[address]OGY CLINIC [address] | [address] [place] | | | | | [address] [place] | [place] [address] | | | | | [place] [address] | [phone] | | | | | [phone] | | | +--------+--------+ + + + [...] [address] | | | | | | [place], [place] | | | | | | [address] | | | | | | | | +--------+ + + + + documented as of this encounter Visit Diagnoses + + | Diagnosis | + + | Malignant neoplasm of upper-outer quadrant of left female breast, unspecified estrogen | | receptor status (HCC) - Primary | + + documented in this encounter"
--- OUTSIDE RECORDS SUMMARY | ~2019-05-31 | XMS | Encounter Summary ---
Demographics + + + | Address | [address] | | | [place] [address] | + + + | Home Phone | | + + + | Preferred Language | Unknown | + + + | Marital Status | | + + + | Mandaeism Affiliation | 1041 | + + + | Race | Unknown | + + + | Ethnic Group | Unknown | + + + Author + + + | Author | [facility] | | | and [place] | + + + | Organization | [facility] | | | and [place] [...] , [place] | | | | | [address] | | + + + + + Care Team Providers + +------+ + | Care Armature Rewinder Name | Role | Phone | + +------+ + | Cordell Blake MD | PCP | | + +------+ + Encounter Details +--------+ + + + + | Date | Type | Department | Care Team | Description | +--------+ + + + + | 02/09/ | Hospital | [facility] | Roxana Willams | Encounter for | | 2017 | Encounter | MED CTR RADIATION | Richard, [address] | screening mammogram | | | | ONCOLOGY [address] [place], [place] | for high-risk | | | | [place], | [address] | patient (Primary Dx) | | | | [place] [address] | | | | | | [phone] | | | +--------+ + + + [...] Screening mammogram due late January 2018 at [facility] Follow--up with Dr. Herrera in 1 [...] Roxana James MD - 02/09/2017 12:00 AM [facility] Radiation Oncology Follow-up Note PATIENT: Fior Gonsalves MR#: [id number] :1945 DOS:02/09/2017 ICD/Diagnosis: C50.412 - Malignant neoplasm [...] 0/2 sentinel lymph nodes involved, ER 95%, [place] 30%, Ki-67 65%, HER-2/juliann nonam plified by [...] concern. Annual screening mammogram on 01/18/17 at is benign, BI-RADS Category 2. Continues taking [...] 0 = no pain and 10= worst [id number] your pain (quality) i.e. aching, s harp, [...] sentin el lymph nodes involved, ER 95%, IA 30%, Ki-67 65%, HER-2/juliann nonamplified by FISH. [...] M.D. Radiation Oncologist Department of Radiation Oncology [facility] Electronically signed by Roxana James M.D CC: Cordell Blake M.D. Ap Pascual M.D. Fior Lara M.D. Kirk Linder M.D. This note was transcribed using [employer] speech recognition software. As a result, there ma y be unintended for medical and/or spelling errors. Every attempt is made to correct dicta tion. If there are any questions or errors please contact our office. CSN: [id number] signed by Roxana James MD at 03/03/2017 [...] [address] | | | | | | [facility] [place] | | | | | | [address] | | | | | | | | +--------+ + + + + documented as of this encounter Visit Diagnoses + + | Diagnosis | + + | Encounter for screening mammogram for high-risk patient - Primary | + + documented in this encounter"
--- OUTSIDE RECORDS SUMMARY | ~2019-05-31 | XMS | Encounter Summary ---
Demographics + + + | Address | [address] | | | [place] [address] | + + + | Home Phone | | + + + | Preferred Language | Unknown | + + + | Marital Status | | + + + | Baptism Affiliation | 1041 | + + + | Race | Unknown | + + + | Ethnic Group | Unknown | + + + Author + + + | Author | [facility] | | | and [place] | + + + | Organization | [facility] | | | and [place] [...] [place] | | | | | [address] | | + + + + + Care Team Providers + +------+ + | Care Bicycle Subassembler Name | Role | Phone | + +------+ + | Isaak Meyer NP | PCP | | + +------+ + Encounter Details +--------+ + + + + | Date | Type | Department | Care Team | Description | +--------+ + + + + | 10// | Orders Only | [facility] | Roxana Willams | Encounter for | | 2018 | | MED CTR RADIATION | MD Richard [address] | screening mammogram | | | | ONCOLOGY CLINIC [address] | [place], [place] | for high-risk | | | | [facility] | [id number] | patient (Primary Dx) | | | | [place] [address] | | | | | | [phone] | | | +--------+ + + + [...] 04/11/ | Appointment | Radiation Oncology | ЕкатеринаCarminaen | | | 2020 | | | MD Richard [address] | | | | | | [place] | | | | | | [address] | | | | | | | [...] | | e | screening mammogram | 01/11/2019, Expires: | | | | | for high-risk | 05/13/2019 | | | | | patient | | + +---------+--------+ + + documented as of this encounter Visit Diagnoses + + | Diagnosis | + + | Encounter for screening mammogram for high-risk patient - Primary | + + documented in this encounter"
--- OUTSIDE RECORDS SUMMARY | ~2019-05-31 | XMS | Encounter Summary ---
Demographics + + + | Address | [address] | | | [place] [address] | + + + | Home Phone | | + + + | Preferred Language | Unknown | + + + | Marital Status | | + + + | Temple Affiliation | 1041 | + + + | Race | Unknown | + + + | Ethnic Group | Unknown | + + + Author + + + | Author | [facility] | | | and [place] | + + + | Organization | [facility] | [...] [place] | | | | | [address] | | + + + + + Care Team Providers + +------+ + | Care Wastewater Treatment Operator Name | Role | Phone | [...] Refill | | 2017 | | MED [facility] | Kirk Rodarte MD [address] | | | | | ON[address]OGY CLIN[address] | [address] [place] | | | | | [place] | [place] [address] | | | | | [place] [address] | [phone] | | | | | [phone] | | | +--------+--------+ + + + [...] | 2019 | | | MD [address] | | | | | | ST [place], [place] | | | | | | [address] | | | | | | | | +--------+ + + + + documented as of this encounter Visit Diagnoses + + | Diagnosis | + + | Malignant neoplasm of left female breast, unspecified site of breast - Primary | + + documented in this encounter"
--- OUTSIDE RECORDS SUMMARY | ~2019-05-31 | XMS | Encounter Summary ---
Demographics + + + | Address | [address] | | | [place] [address] | + + + | Home Phone | | + + + | Preferred Language | Unknown | + + + | Marital Status | | + + + | Judaism Affiliation | 1041 | + + + | Race | Unknown | + + + | Ethnic Group | Unknown | + + + Author + + + | Author | [facility] | | | and [place] | + + + | Organization | [facility] | | | and [place] [...] [place], [place] | | | | | [address] | | + + + + + Care Team Providers + +------+ + | Care In Home Sales Representative Name | Role | Phone | + [...] | Breast | Roxana M, | [address] | | | | | cancer of | MD [address] | [place], | | | | | upper-outer | [address] | [place] [address] | | | | | quadrant of | [place], | Phone: | | | | | left female | [place] [address] | [phone] | | | | | breast (HCC) | Phone: | Fax: | | | | | Procedures | [phone] | [phone] | | | | | CT | Fax: | | | | | | Treatment | [phone] | | | | | | Plan [...] | Breast | Roxana M, | [address] | | | | | cancer of | MD [address] | [place], | | | | | upper-outer | [address] | [place] [address] | | | | | quadrant of | [place], | Phone: | | | | | left female | [place] [address] | [phone] | | | | | breast (HCC) | Phone: | Fax: | | | | | Procedures | [phone] | [phone] | | | | | CT | Fax: | | | | | | Treatment | [phone] | | | | | | Plan Complex | | | +--------+--------+ + + + + Encounter Details +--------+ + + + + | Date | Type | Department | Care Team | Description | +--------+ + + + + | 03/10/ | Hospital | [facility] | Roxana Willams | Breast cancer of | | 2016 | Encounter | MED CTR CT [address] | MMD [address] | upper-outer quadrant | | | | [address] [place], | [place], [place] | of left female | | | | [place] [address] | [address] | breast (HCC) | | | | [phone] | | | +--------+ + + + [...] | | | | | | [place], [place] | | | | | | [address] | | | | | | | [...]
--- OUTSIDE RECORDS SUMMARY | ~2019-05-31 | XMS | Encounter Summary ---
Demographics + + + | Address | [address] | | | [place] [address] | + + + | Home Phone | | + + + | Preferred Language | Unknown | + + + | Marital Status | | + + + | Latter Day Affiliation | 1041 | + + + | Race | Unknown | + + + | Ethnic Group | Unknown | + + + Author + + + | Author | [facility] | | | and [place] | + + + | Organization | [facility] | | | and [...] [place] | | | | | [address] | | + + + + + Care Team Providers + +------+ + | Care Pneumatic Tool Repairer Name | Role | Phone | + +------+ + | Isaak Meyer NP | PCP | | + +------+ + Encounter Details +--------+ + + + + | Date | Type | Department | Care Team | Description | +--------+ + + + + | 10// | Orders Only | [facility] | Roxana Willams | Encounter for | | 2018 | | MED CTR RADIATION | MD Richard [address] | screening mammogram | | | | ONCOLOGY CLINIC [address] | [place], [place] | for high-risk | | | | [facility] | [id number] | patient (Primary Dx) | | | | [place] [address] | | | | | | [phone] | | | +--------+ + + + [...] | | | | [place] | | | | | | [address] | | | | | | | [...]
[~2019-05-31 11:37] MED LIST: ADVIL200 MG NG; ARIMIDEX1 MG PO; B COMPLETE1 EACH PO; CALCIUM500 MG PO; CO Q-10100 MG PO; IRON18 MG PO; MULTI VITAMIN1 EACH PO; OXYCODON-ACETA1 EAC2 PO; VENLAFAXINE HCL75 M1 PO; VITAMIN D22000 UNIT PO; VITAMIN E100 UNI3 PO
[2019-05-31] MEDS ORDERED: ONDANSETRON ODT8 MG PO (13:30)
== END 2019-05-31 15:55 | disposition home or self-care (01) ==
LOC: ED 11:37
DX: K52.9 Noninfective gastroenteritis and colitis, unspecified (principal); K92.1 Melena; Z87.891 Personal history of nicotine dependence; Z88.2 Allergy status to sulfonamides; Z88.5 Allergy status to narcotic agent
CPT/HCPCS: 80053; 85025; 96361; 96374; 99284-25; J2405; J7030

== ENCOUNTER 2020-08-18 10:36 | Emergency (ER) | payer BC, MEDICARE ==
[~2020-08-18] VITALS: Ht 167.6 cm; Wt 89.4 kg
[~2020-08-18 10:36] MED LIST changes: +ONDANSETRON ODT8 MG PO
[2020-08-18] MEDS ORDERED: MONTELUKAST SOD10 MG PO (11:08)
[2020-08-18] MEDS ORDERED: ZOFRAN4 MG PO (13:30)
[2020-08-18] MEDS ORDERED: HYDROCODON-ACE1 EA10 PO (13:30)
[2020-08-18] MEDS ORDERED: COLACE100 MG PO (13:30)
== END 2020-08-18 15:00 | disposition home or self-care (01) ==
LOC: ED 10:36
DX: S82.144A Nondisplaced bicondylar fracture of right tibia, initial encounter for closed fracture (principal); S82.832A Other fracture of upper and lower end of left fibula, initial encounter for closed fracture; Z20.822 Contact with and (suspected) exposure to COVID-19; S82.142A Displaced bicondylar fracture of left tibia, initial encounter for closed fracture; W01.198A Fall on same level from slipping, tripping and stumbling with subsequent striking against other object, initial encounter; Z87.891 Personal history of nicotine dependence; Z88.2 Allergy status to sulfonamides; Z88.5 Allergy status to narcotic agent; Z79.899 Other long term (current) drug therapy
CPT/HCPCS: 73560; 73610; 73700; 99284-25; A9270; C9803; U0003

== ENCOUNTER 2024-08-02 11:26 | Emergency (ER) | payer MEDICARE, BC ==
[~2024-08-02] VITALS: Ht 167.6 cm; Wt 80.7 kg
[~2024-08-02 11:26] MED LIST changes: +COLACE100 MG PO; +HYDROCODON-ACE1 EA10 PO; +MONTELUKAST SOD10 MG PO; +ZOFRAN4 MG PO
[2024-08-02] MEDS ORDERED: NITROGLYCERIN 0.4 MG SUBL SL PRN (11:45)
[2024-08-02] MEDS ORDERED: ASPIRIN 81 MG CHEW PO ONE (11:45)
[2024-08-02 11:51] LABS: BASOPHILS 0.7 % (0-2); EOSINOPHILS 2.2 % (0-6); HEMATOCRIT 45.1 % (35.0-50.0); HEMOGLOBIN 14.8 g/dL (12.0-18.0); LYMPHOCYTES 25.8 % (24-44); MCHC 32.9 g/dl (30-36); MONOCYTES 4.6 % (0-12); NEUTROPHILS 66.7 % (39-80); PLATELET COUNT 219 K/uL (140-440); RBC 4.95 M/ul (4.3-5.7); RDW 14.1 (10.5-15.0)
[2024-08-02 12:15] LABS: ALBUMIN 4.2 g/dL (3.4-5.0); ALBUMIN/GLOBULIN RATIO 1.11 (1.1-2.4); BILIRUBIN, TOTAL 0.6 mg/dL (0.2-1.0); BUN/CREATININE RATIO 13.95 (6.0-28.6); CALCIUM 9.2 mg/dL (8.5-10.1); CREATININE, SERUM 0.86 mg/dL (0.55-1.02); MAGNESIUM 2.2 mg/dL (1.8-2.4)
[2024-08-02] MEDS ORDERED: LIDOCAINE HCL 4% 1 EACH PATCH TD ONE (12:15)
[2024-08-02] MEDS ORDERED: OXYCODONE/APAP 10/325 TAB PO ONE (12:15)
--- NOTE | 2024-08-02 14:03 | EKG ---
[facility] [address] [facility] [place], [place] [address] Signed Normal sinus rhythm Normal ECG No previous ECGs available Confirmed by Celeste Juan MD ([id number]) on 08/02/2024 2:03:25 PM Electronically Signed By: CELESTE JUAN MD 08/02/24 1403 PATIENT NAME: MEHDI OZUNA Electrocardiogram DATE OF : 47 PHYSICIAN: CELESTE JUAN MD REPORT #: [id number] REPORT IS CONFIDENTIAL AND NOT TO BE RELEASED WITHOUT AUTHORIZATION
[2024-08-02] MEDS ORDERED: LIDODERM1 EACH TOP (14:11)
[2024-08-02] MEDS ORDERED: VOLTAREN ARTHRI20 GM TOP (14:11)
[2024-08-02] MEDS ORDERED: OXYCODONE/ACETAMINOPHEN 1 TAB HOME.PACK PO ONE (14:15)
[2024-08-02 14:25] VITALS: BP 145/84
[2024-08-02] MEDS ORDERED: LIDOCAINE PATCH REMOVAL 1 EA TD SCH (21:00)
== END 2024-08-02 14:25 | disposition home or self-care (01) ==
LOC: ED 11:26
PROVIDERS: Emergency Medicine
DX: S22.22XA Fracture of body of sternum, initial encounter for closed fracture (principal); I10 Essential (primary) hypertension; J45.909 Unspecified asthma, uncomplicated; Z87.891 Personal history of nicotine dependence; Z88.2 Allergy status to sulfonamides; Z88.5 Allergy status to narcotic agent; Z79.899 Other long term (current) drug therapy; W50.0XXA Accidental hit or strike by another person, initial encounter
CPT/HCPCS: 36415; 71045; 71250; 80053; 83735; 83880; 84484; 85025; 93005; 93010; 99285-25; A9270

== ENCOUNTER 2024-09-17 07:19 | Day surgery (SDC) | payer MEDICARE, BC ==
[~2024-09-17] VITALS: Ht 167.6 cm; Wt 81.8 kg
[~2024-09-17 07:19] MED LIST changes: +IBLOOD GLUCOSE TEST STRIP 1 EA TEST VI PRN; +LACTATED RINGER'S 1,000 ML IV SCH; +LIDOCAINE HCL 1% 5 ML SDV INJ ONE; +LIDODERM1 EACH TOP; +MIDAZOLAM HCL 5 MG/5 ML VIAL IV PRN; +VOLTAREN ARTHRI20 GM TOP; +fentaNYL citrate 100 MCG/2 ML VIAL IV PRN
[2024-09-17 07:33] VITALS: BP 119/72
[2024-09-17] MEDS ORDERED: fentaNYL citrate 100 MCG/2 ML VIAL ONE (08:09)
[2024-09-17] MEDS ORDERED: MIDAZOLAM HCL 5 MG/5 ML VIAL ONE (08:09)
--- NOTE | 2024-09-17 09:31 | NUR ---
09/17/24 0931 Elva Shine 0911 PT ARRIVED IN PACU WIDE AWAKE. ABD SOFT AND PASSING FLATUS. 0920 DR AT BEDSIDE. ALL QUESTIONS ANSWERED. 0930 RESTING. REU.
[2024-09-17 09:45] VITALS: BP 112/60
--- NOTE | 2024-09-19 14:03 | PATH ---
[facility] [address] [place], [place] [address] Signed SPECIMEN(S): A LEFT COLON POLYP SPECIMEN(S): B CECUM COLON POLYP SPECIMEN SOURCE: A. LEFT COLON POLYP B. CECUM COLON POLYP CLINICAL HISTORY: Pre-: Last colonoscopy about 13 years ago reported normal; family history of colon cancer (brother). Post: Diverticulosis and polyps x 2. FINAL PATHOLOGIC DIAGNOSIS: A. Colon, left, polypectomy: - Tubular adenoma B. Cecum, polypectomy: - Tubular adenoma BRP MICROSCOPIC EXAMINATION: Histologic sections of all submitted blocks are examined by light microscopy. These findings, together with the gross examination, support the pathologic diagnosis. GROSS DESCRIPTION: A. The specimen, labeled and designated "Major, P, left colon polyp," is received in formalin and consists of two pablo soft tissue fragments, ranging from 0.2-0.4 cm. Entirely submitted in (A1). B. The specimen, labeled and designated "Major, P, cecum colon polyp," is received in formalin and consists of five pablo soft tissue fragments, ranging from 0.2-0.4 cm. Entirely submitted in (B1). AB (under the direct supervision of a pathologist) The Gross Description was prepared using a voice recognition system. The report was reviewed for accuracy; however, sound-alike word errors, addition and/or deletions may occur. If there is any question about this report, please contact Client Services. ADDITIONAL NOTES: Immunohistochemical and/or in situ hybridization studies if performed in this case included appropriate positive controls that reacted as expected. This test was developed and its performance characteristics determined by [facility]. It has not been cleared or PATIENT NAME: MEHDI OZUNA PATHOLOGY DATE OF : 47 REPORT #: [id number] PHYSICIAN: JESUS ALBERTO CHEN PCP: HANNY MARTINEZ MD REPORT IS CONFIDENTIAL AND NOT TO BE RELEASED WITHOUT AUTHORIZATION [facility] [address] [place], [place] [address] Signed approved by the U.S. Food and Drug Administration. The FDA has determined that such clearance or approval is not necessary. This test is used for clinical purposes. It should not be regarded as investigational or for research. [facility] is certified under the Clinical Laboratory Improvement Amendments of 1988 (CLIA) as qualified to perform high complexity clinical laboratory testing. PERFORMING LABORATORY: Technical component was performed by [facility], [address] [place] [id number] (CLIA# [id number]). Professional interpretation was performed by [facility], [address] [place] [id number] (CLIA#:[id number]). Diagnostician: Sathya Martinez MD Pathologist Electronically Signed 09/19/2024 Copies: ~ PATIENT NAME: MEHDI OZUNA PATHOLOGY DATE OF : 47 REPORT #: [id number] PHYSICIAN: JESUS ALBERTO PATHOLOGY PCP: HANNY MARTINEZ MD REPORT IS CONFIDENTIAL AND NOT TO BE RELEASED WITHOUT AUTHORIZATION
--- NOTE | 2024-09-19 19:47 | OR ---
[facility] [address] [place], [place] [address] Signed DATE OF OPERATION: 09/17/2024 SURGEON: Jennifer Beal MD PREOPERATIVE DIAGNOSIS: Family history of colon cancer (brother age 69). POSTOPERATIVE DIAGNOSES: 1. Sigmoid diverticulosis. 2. Polyps x2, cecum and left colon. PROCEDURE: Total colonoscopy to cecum with cold snare polypectomy x1, cold morcellation polypectomy x1. ANESTHESIA: Intravenous sedation fentanyl 150 mcg and Versed 5 mg. INDICATION: This 79-year-old white woman is a patient of Dr. Briones. She has family history of colon cancer in her brother who at age 69 from the disease. The patient last underwent colonoscopy in [address] Jose Clay. She has no current symptoms of bleeding, diarrhea, or constipation. She is admitted at this time to undergo screening colonoscopy. She understands the risk of bleeding, infection, and perforation. FINDINGS: Her prep was good. Complete colonoscopy was undertaken of the cecum with full intubation of the cecum. There was an adenomatous polyp of the cecum and another small polyp of the left colon. Both were excised. Diverticula were noted of the sigmoid. DESCRIPTION OF PROCEDURE: The patient was brought to the endoscopy suite and placed in lateral decubitus position, given intravenous sedation to the point of slurred speech and nystagmus. Digital rectal examination was normal. Full cardiopulmonary monitoring was maintained throughout the procedure. Scope was inserted after normal digital rectal examination and manipulated into the sigmoid. Dense diverticular changes were noted. Ultimately, the scope was changed out as it was not appropriate for passage in this area. Reintroduction of a different scope allowed for passage to the sigmoid without much problem at all. Upon passage through the left colon, a small adenomatous polyp was noted. This was excised with combination of cold snare technique and morcellation technique completely. Scope Electronically Signed By: JENNIFER BEAL MD 09/19/241946 PATIENT NAME: MEHDI OZUNA OPERATIVE REPORT DATE OF : 47 REPORT #: [id number] PHYSICIAN: JENNIFER BEAL MD PCP: HANNY BRIONES MD REPORT IS CONFIDENTIAL AND NOT TO BE RELEASED WITHOUT AUTHORIZATION [facility] [address] [place], [place] [address] Signed was then advanced fully to the cecum itself. The ileocecal valve and appendiceal orifice were normal. Irrigation was undertaken. A small adenomatous polyp was noted. It was less than a cm. This was excised with cold snare technique. No untoward bleeding occurred. Polyp was withdrawn and removed and passed for pathology as well. The scope was then withdrawn and examination throughout showed no sign of abnormality other than the previous polypectomy site and diverticula of the sigmoid. Retroflexed view of the rectum was normal. The scope was removed. The patient was taken to recovery room in good condition. CONCLUDING DIAGNOSIS: Polyps x2 and diverticulosis. PLAN: Recommend repeat colonoscopy in 5 years based on family history of colon cancer (brother). It can be done anytime sooner should the need arise based on clinical grounds. She will return to the ongoing care of Dr. Briones. MD MARGARITA Younger/PRESTONL /[id number] cc: Dr. Briones Copies: ~ Electronically Signed By: JENNIFER BEAL MD 09/19/24 1947 PATIENT NAME: MEHDI OZUNA OPERATIVE REPORT DATE OF : 47 REPORT #: [id number] PHYSICIAN: JENNIFER BEAL MD PCP: HANNY BRIONES MD REPORT IS CONFIDENTIAL AND NOT TO BE RELEASED WITHOUT AUTHORIZATION
== END 2024-09-17 09:56 | disposition home or self-care (01) ==
LOC: DS 07:19
PROVIDERS: ATTEND Surgery
PROC: 0DBG8ZZ Excision of Left Large Intestine, Via Natural or Artificial Opening Endoscopic (ICD-10-PCS; 2024-09-17)
PROC: 0DBH8ZZ Excision of Cecum, Via Natural or Artificial Opening Endoscopic (ICD-10-PCS; principal; 2024-09-17 08:30)
DX: Z12.11 Encounter for screening for malignant neoplasm of colon (principal); D12.0 Benign neoplasm of cecum; D12.4 Benign neoplasm of descending colon; K57.30 Diverticulosis of large intestine without perforation or abscess without bleeding; Z90.49 Acquired absence of other specified parts of digestive tract; Z90.710 Acquired absence of both cervix and uterus; Z88.2 Allergy status to sulfonamides; Z88.5 Allergy status to narcotic agent; Z79.899 Other long term (current) drug therapy; Z85.3 Personal history of malignant neoplasm of breast; Z80.0 Family history of malignant neoplasm of digestive organs
CPT/HCPCS: 88305; 99153; G0500; J2250; J3010; J7121